=== PATIENT | female | born 1990 | race African-American/Black ===

== ENCOUNTER 2018-09-27 15:45 | Day surgery (SDC) | payer MEDICARE, MEDICAID ==
[2018-09-27 16:22] VITALS: BP 132/79; TEMP 98.5; BMI 51.6
--- NOTE | 2018-09-27 17:09 | PDOC.FPROB ---
FMR OB H&P: HPI - History of Present Illness Chief Complaint: chest pain History of Present Illness: 27AAF @ 30.5w dated by 2T US presented to clinic earlier in the day for routine Ob f/u. She was found to have near severe range blood pressures coupled with chest pain. The CP is new onset. It is substernal and non radiating. Described as an intense ache. Occurs while at rest and not associated with exertion. No history of CP before being and no history of GERD. Patient was evaluated by MFM earlier in the day and, per patient, her systolic blood pressure was >180 mmHg. She denies any headache, vision changes, AMS. She does not have hx of pregestational HTN. She denies dysuria, hematuria, RUQ pain , or increased BLE swelling. She reports her legs have been mildly swollen for some time now. Primary Care Physician: Emily Kennedy MD FMR OB H&P: Current - Care : 1 Para: 0 Gestational age: 30.5 Due date: 12/01/2018 Dating Criteria: 2T US Course/Complications: new onset chest pain leg swelling - OB Labs Blood type: unknown RH: unknown Antibody Screen: unknown HIV: unknown RPR: unknown HepBsAg: unknown Quad screen: unknown Urine drug screen: not done Gonorrhea: unknown Chlamydia: unknown GBS: unknown FMR OB H&P: History - Past Medical History PMH: none - OB History OB History: MFM diagnosed a short cervix and prescribed vaginal progesterone - Surgical History Sx History: none - Family History Family History: mother with a history of c/s for an unknown reason FMR OB H&P: Medications - Current Home Medications: Medication Instructions Recorded Confirmed Type Pnv No.95/Ferrous Fum/Folic AC 1 tab PO DAILY 09/27/18 09/27/18 History [ Vitamins Tablet] Progesterone, Micronized 1 capsule VAG HS 09/27/18 09/27/18 History [Progesterone] Allergies/Adverse Reactions: Allergies Allergy/AdvReac Type Severity Reaction Status Date / Time No Known Allergies Allergy Verified 09/27/18 16:11 FMR OB H&P: ROS - Review of Systems General: denies: fever/chills, weight/appetite/sleep changes ENT: denies: nasal congestion, rhinorrhea Cardiovascular: reports: chest pain, edema. denies: palpitation Respiratory: denies: cough, congestion Gastrointestinal: denies: abdominal pain, indigestion, bloating Genitourinary (Female): denies: dysuria, hematuria Musculoskeletal: denies: pain, stiffness Neurologic: denies: numbness, syncope Integumentary: denies: rash, lesions Endocrine: denies: cold intolerance, heat intolerance Psychological: denies: depression, anxiety FMR OB H&P: Vital Signs - Maternal Vital signs: Vital Signs - First Documented Temp Pulse Resp BP 98.5 F 85 18 132/79 09/27/18 16:09 09/27/18 16:09 09/27/18 16:09 09/27/18 16:09 FMR OB H&P: Physical Exam - Physical Exam General: NAD, awake, alert and oriented HEENT: normocephalic and atraumatic, PERRLA Neck: supple, trachea midline Chest: non-tender to palpation, no lesions Heart: RRR, normal S1/S2 General: CTAB, no respiratory distress Abdomen: soft, gravid, non-tender Neurological: cranial nerves II through XII intact, no focal deficit Skin: no rash, good tugor FMR OB H&P: A/P - Problem List (1) Atypical chest pain Current Visit: Yes Status: Acute Code(s): R07.89 - OTHER CHEST PAIN Assessment and Plan: -EKG pending -trend cardiac enzymes -currently not symptomatic -reportedly this was an issue prior to as well (2) Pre-eclampsia Current Visit: Yes Status: Suspected Code(s): O14.90 - UNSPECIFIED PRE- ECLAMPSIA, UNSPECIFIED TRIMESTER Qualifiers: Trimester: third trimester Qualified Code(s): O14.93 - Unspecified pre- eclampsia, third trimester Assessment and Plan: -CBC, CMP, Urine culture, urine protein:creatinine, HIV, RPR -initial blood pressure in normal range and patient asymptomatic -await lab/urine results and f/u accordingly Discussion: Date/Time: 09/27/18 8332 This H&P was discussed with [] and [] who agree with the above documentation and plan.
[2018-09-27 18:05] LABS: Creatinine, Urine 103.93 mg/dL (47-110)
[2018-09-27 18:12] LABS: #Eosinphils 0.1 thou/uL (0.0-0.7); #Lymphocytes 1.4 thou/uL (1.20-3.40); #Monocytes 0.6 thou/uL (0.11-0.59); #Neutrophils 4.1 thou/uL (1.40-6.50); %Basophils 0.4 % (0.0-1.0); %Monocytes 9.3 % (0.0-10.0); %Neutrophils 65.4 % (42.0-75.0); Hemoglobin 10.9 g/dL (12.0-16.0); Mean Corpuscular HGB CONC 32.8 g/dL (32.0-36.0); Mean Corpuscular Hemoglobin 27.9 pg (27.0-31.0); Mean Corpuscular Volume 84.9 fL (78.0-98.0); Mean Platelet Volume 8.4 fL (7.4-10.4); Platelet Count 146 thou/uL (130-400); RBC Distribution Width 11.3 % (11.5-14.5); White Blood Cell (WBC) Count 6.2 thou/uL (4.8-10.8)
[2018-09-27 18:26] LABS: ALT (SGPT) 12 U/L (8-55); AST (SGOT) 16 U/L (5-34); Albumin 3.4 g/dL (3.5-5.0); Alkaline Phosphatase 68 U/L (40-150); Anion Gap 10 mmol/L (10-20); BUN (Urea Nitrogen) 4 mg/dL (7.0-18.7); Bilirubin, Total 0.4 mg/dL (0.2-1.2); Calc. Creatinine Clearance 341 mL/min (70-130); Calcium 9.4 mg/dL (7.8-10.44); Carbon Dioxide 26 mmol/L (22-29); Chloride 103 mmol/L (98-107); Estimated GFR-MDRD Greater than 90; Globulin 3.3 g/dL (2.4-3.5); Glucose 81 mg/dL (70-105); Protein, Total 6.7 g/dL (6.0-8.3); Sodium 136 mmol/L (136-145)
[2018-09-27 18:30] LABS: Troponin I Less than 0.010 ng/mL (< 0.028)
[2018-09-27 18:52] LABS: HIV (1/2) Antibody/Antigen Non-Reactive (NonReactive); HIV 1/2 INDEX 0.11 S/CO (<1.00)
[2018-09-27 18:56] LABS: Syphilis Antibody Index 17.44 S/CO (<1.00 Non-Reactive)
[2018-09-27 20:39] LABS: Troponin I Less than 0.010 ng/mL (< 0.028)
--- NOTE | 2018-09-27 20:59 | PDOC.EVN ---
Event Note - Event Note Event Note: Labs significant for K: 3.0. Troponins negative x2, EKG NSR, P:C 0.135, all other pre-E labs negative. BP has been out of severe range since she has been here. Had a reading of 141/68 around 18:30. She does have one level of SBP in the low 140s about every hour, but otherwise they are commonly in the 100s/60s. She has been free of symptoms of CP here in hospital, no contractions, COLON, scotoma, LOF. Will d/c home with KCl 20mg daily and recheck potassium early next week.
[2018-09-28 00:47] LABS: Syphilis Antibody INDETERMINATE (Nonreactive)
== END 2018-09-27 21:00 | disposition home or self-care (01) ==
LOC: L&D/OP 15:45
PROVIDERS: ATTEND Family Medicine
DX: O99.89 Other specified diseases and conditions complicating pregnancy, childbirth and the puerperium (principal); R07.89 Other chest pain; Z3A.30 30 weeks gestation of pregnancy; Z79.899 Other long term (current) drug therapy
CPT/HCPCS: 36415; 80053; 82553; 82570; 84156; 84484; 85025; 86593; 86780; 87086; 87389; 93005; 93010; 99285

== ENCOUNTER 2018-10-29 13:36 | Observation (INO) | payer MEDICARE, MEDICAID ==
--- NOTE | 2018-10-29 13:51 | PDOC.FPROB ---
FMR OB H&P: HPI - History of Present Illness Chief Complaint: gHTN severe range pressures History of Present Illness: 27yo @35.2wks by LMP c/w 2T US presented to clinic earlier in the day for routine Ob f/u. She was found to have near severe range blood pressures, 159/117 , 166/106, 168/100. She was asymptomatic in clinic and continues to deny headache, vision changes, AMS, RUQ abdominal pain, dysuria or edema. She reports her legs have been mildly swollen for some time now. On 09/27/18 presented to [facility] from clinic for elevated pressures and chest pain. She had workup for pre-E which was ultimately negative. No hx of pregestational HTN. Primary Care Physician: Damion FMR OB H&P: Current - Care : 1 Para: 0 Gestational age: 35.2 Due date: 12/01/2018 Dating Criteria: LMP c/w 2T US Course/Complications: gHTN, obesity, polyhydramnios 10/22, normal MOLLY 10/29, IUGR - OB Labs Blood type: A RH: positive Antibody Screen: negative HIV: negative RPR: positive HepBsAg: negative Rubella: immune Gonorrhea: negative Chlamydia: negative 1 hour gtt: 94 A1c: 4.6% GBS: unknown H&H: 10.9/33.1 FMR OB H&P: History - Past Medical History PMH: + RPR, Obesity - Surgical History Sx History: None - Family History Family History: Brother- seizures Mother- DM, HTN, from [place] FMR OB H&P: Medications - Current Home Medications: Medication Instructions Recorded Confirmed Type Pnv No.95/Ferrous Fum/Folic AC 1 tab PO DAILY 09/27/18 09/27/18 History [ Vitamins Tablet] Potassium Chloride [K-Dur] 20 meq PO DAILY #30 tab 09/27/18 Rx Progesterone, Micronized 1 capsule VAG HS 09/27/18 09/27/18 History [Progesterone] Allergies/Adverse Reactions: Allergies Allergy/AdvReac Type Severity Reaction Status Date / Time No Known Allergies Allergy Verified 10/29/18 14:54 FMR OB H&P: ROS - Review of Systems General: denies: fever/chills, fatigue Eyes: denies: eye pain, vision changes, double vision, scotomas, floaters ENT: denies: nasal congestion, sinus pain/pressure Cardiovascular: reports: chest pain. denies: palpitation, edema Respiratory: denies: shortness of breath, exercise intolerance Gastrointestinal: denies: abdominal pain, nausea, vomiting Genitourinary (Female): denies: dysuria, vaginal discharge, vaginal pain, vaginal bleeding, contractions Musculoskeletal: denies: pain, swelling Neurologic: denies: numbness, seizures, headache Integumentary: denies: rash, lesions Psychological: reports: anxiety FMR OB H&P: Vital Signs - Heart Tones Baseline: 135 Variability: moderate Acceleration: present Deceleration: absent Category: category 1 FMR OB H&P: Physical Exam - Physical Exam General: NAD, awake, alert and oriented HEENT: normocephalic and atraumatic, MMM, conjunctiva clear, no scleral icterus Neck: supple Chest: non-tender to palpation Heart: RRR, no murmurs/rubs/gallops General: CTAB, no respiratory distress Abdomen: soft, gravid, non-tender, bowel sound present Deviation from normal: obese Musculoskeletal: normal gait and station, pulses present, FROM in all four extremities, no misalignment/asymmetry, no atrophy Neurological: no focal deficit Skin: capillary refill <2 seconds Psychiatric: intact recent and remote memory, good judgement and insight, normal mood and affect FMR OB H&P: A/P - Problem List (1) Gestational HTN Current Visit: Yes Status: Acute Code(s): O13.9 - GESTATIONAL HTN W/O SIGNIFICANT PROTEINURIA, UNSP TRIMESTER Qualifiers: Trimester: third trimester Qualified Code(s): O13.3 - Gestational [ -induced] hypertension without significant proteinuria, third trimester Disposition: gHTN with likely Pre-E - no hx of pregestational HTN - 150-160's/100-110's in clinic - 170's/90's here - Denies symptoms of Pre-E - Ordered NST/BPP with S/D ratio, CBC, CMP, and urine protein/creatinine ratio - Ordered 24hr Urine protein, had been ordered outpatient and not done - Consider steroids - Admit to observation sIUP - NST - Monitor VS Morbid Obesity +RPR/+Trep Ab - Titer 1:1 on 12/30, 1:2 on 09/27 Discussion: Date/Time: 10/29/18 7047 This H&P was discussed with Dr. Meadows who agrees with the above documentation and plan.
[2018-10-29 15:40] VITALS: BMI 54.7
[2018-10-29] MEDS: Betamet Acet/Betamet Na Ph 30 MG/5 ML VIAL IM SCH (16:55)
--- NOTE | 2018-10-29 17:11 | ULT ---
ULTRASOUND BIOPHYSICAL PROFILE ULTRASOUND DOPPLER UMBILICAL ARTERY 10/29/18 HISTORY: Gestational hypertension. COMPARISON: None. TECHNIQUE: Real time hill scale, color doppler and spectral analysis of the gravid uterus was performed. The biophysical profile score is 8/8. The placenta is anterior and the fetus is in vertex position. H eart rate documented at 140 beats per minute. Adequate amniotic fluid with amniotic fluid index of 14 .5 cm. At the placenta, the umbilical artery peak systolic velocity is 71.4 cm/s. End diastolic velocity 3 2.6 cm/s, systolic/diastolic ratio 2.19. Mid umbilical artery: Peak systolic velocity 105 cm/s. End diastolic velocity 38 cm/s. Systolic/diast olic ratio 2.8. The cord insertion peak systolic velocity umbilical artery is 98.5 cm/s. End diastolic velocity 26.9 cm/s. Systolic/diastolic ratio 3.66. IMPRESSION: 1. Normal umbilical artery doppler. 2. Biophysical profile score 8/8. POS: [facility]
[2018-10-29] MEDS ORDERED: Promethazine HCl 25 MG/ML VIAL IM PRN (17:22)
[2018-10-29] MEDS ORDERED: Ondansetron PF 4 MG/2 ML Vial IVP PRN (17:22)
[2018-10-29 17:42] LABS: #Eosinphils 0.1 thou/uL (0.0-0.7); #Lymphocytes 1.5 thou/uL (1.20-3.40); #Monocytes 0.4 thou/uL (0.11-0.59); #Neutrophils 4.8 thou/uL (1.40-6.50); %Basophils 0.1 % (0.0-1.0); %Eosinophils 1.8 % (0.0-10.0); %Lymphocytes 21.6 % (21.0-51.0); %Monocytes 6.4 % (0.0-10.0); %Neutrophils 70.2 % (42.0-75.0); Mean Corpuscular HGB CONC 34.1 g/dL (32.0-36.0); Mean Corpuscular Hemoglobin 28.5 pg (27.0-31.0); Mean Corpuscular Volume 83.6 fL (78.0-98.0); Mean Platelet Volume 8.8 fL (7.4-10.4); Platelet Count 142 thou/uL (130-400); RBC Distribution Width 11.4 % (11.5-14.5); Red Blood Cell (RBC) Count 3.86 mill/uL (4.20-5.40); White Blood Cell (WBC) Count 6.8 thou/uL (4.8-10.8)
[2018-10-29 17:44] LABS: Amphetamine Not Detected (NotDetected); Barbiturates Screen Not Detected (NotDetected); Benzodiazepine Screen Not Detected (NotDetected); Cocaine Metabolite Screen Not Detected (NotDetected); Medtox Control Line Valid? VALID (VALID); Medtox Reader # READER 1; Methadone Not Detected (NotDetected); Methamphetamine Not Detected (NotDetected); Opiate Screen Not Detected (NotDetected); Oxycodone Screen Not Detected (NotDetected); Phencyclidine (PCP) Not Detected (NotDetected); THC/Cannabinoid Screen Not Detected (NotDetected); Tricyclic Screen Not Detected (NotDetected)
[2018-10-29 18:02] LABS: Creatinine, Urine 144.54 mg/dL (47-110)
[2018-10-29 18:06] LABS: ALT (SGPT) 17 U/L (8-55); AST (SGOT) 18 U/L (5-34); Albumin 3.4 g/dL (3.5-5.0); Alkaline Phosphatase 91 U/L (40-150); Anion Gap 9 mmol/L (10-20); BUN (Urea Nitrogen) 5 mg/dL (7.0-18.7); Bilirubin, Total 0.3 mg/dL (0.2-1.2); Calc. Creatinine Clearance 354 mL/min (70-130); Carbon Dioxide 26 mmol/L (22-29); Chloride 105 mmol/L (98-107); Estimated GFR-MDRD Greater than 90; Globulin 2.9 g/dL (2.4-3.5); Glucose 92 mg/dL (70-105); Protein, Total 6.3 g/dL (6.0-8.3); Sodium 137 mmol/L (136-145)
[2018-10-29 18:09] LABS: Potassium 2.9 mmol/L (3.5-5.1)
[2018-10-29] MEDS ORDERED: Potassium Chloride 20 MEQ TAB PO SCH (18:30)
[2018-10-30] MEDS ORDERED: Potassium Chloride 20 MEQ TAB PO SCH ×3 (08:00→16:00)
--- NOTE | 2018-10-30 08:24 | PDOC.FM ---
- Subjective Subjective: Reports feeling well. Denies COLON, SOB, RUQ pain, vision changes, edema. No overnight events. No question or concerns. - Objective MAR Reviewed: Yes Vital Signs & Weight: Vital Signs (12 hours) Temp Pulse Resp BP 10/30/18 04:11 98.4 F 100 18 143/83 H 10/30/18 00:24 98.4 F 101 H 18 117/65 Weight Weight 144.696 kg I&O: 10/29/18 10/30/18 10/31/18 06:59 06:59 06:59 Intake Total 480 Output Total 50 Balance 430 Result Diagrams: 10/29/18 17:27 10/30/18 08:08 Phys Exam - Physical Examination Constitutional: NAD HEENT: moist MMs Neck: supple Respiratory: no wheezing, clear to auscultation bilateral Cardiovascular: RRR, no significant murmur Gastrointestinal: soft, non-tender, positive bowel sounds Musculoskeletal: no edema Neurological: moves all 4 limbs Psychiatric: normal affect, A&O x 3 Skin: cap refill <2 seconds Dx/Plan (1) Gestational HTN Code(s): O13.9 - GESTATIONAL HTN W/O SIGNIFICANT PROTEINURIA, UNSP TRIMESTER Status: Acute Qualifiers: Trimester: third trimester Qualified Code(s): O13.3 - Gestational [ -induced] hypertension without significant proteinuria, third trimester - Plan Plan: gHTN with likely Pre-E - no hx of pregestational HTN - 150-160's/100-110's in clinic - 170's/90's initially, pressures wnr overnight. - Denies symptoms of Pre-E - NST reactive - Urine Pr/Cr 0.16 - 8/8 BPP with S/D ratio 3.66 - Continue 24hr Urine protein, will await result - S/p Betamethasone x1, repeat today Hypokalemia - Replaced with 40mEq x2, 40meq at noon and prior to discharge - Will recheck at 1600 today sIUP - NST reactive - 8/8 BPP with S/D ratio 3.66 - Monitor VS Morbid Obesity +RPR/+Trep Ab - Titer 1:1 on 12/30, 1:2 on 09/27
[2018-10-30 08:41] LABS: Anion Gap 14 mmol/L (10-20); BUN (Urea Nitrogen) 4 mg/dL (7.0-18.7); Calc. Creatinine Clearance 348 mL/min (70-130); Calcium 9.2 mg/dL (7.8-10.44); Carbon Dioxide 21 mmol/L (22-29); Chloride 105 mmol/L (98-107); Estimated GFR-MDRD Greater than 90; Glucose 95 mg/dL (70-105); Sodium 137 mmol/L (136-145)
[2018-10-30] MEDS ORDERED: Budesonide 0.25 MG/2 ML NEB ONE (11:46)
[2018-10-30 16:08] LABS: Anion Gap 13 mmol/L (10-20); BUN (Urea Nitrogen) 4 mg/dL (7.0-18.7); Calc. Creatinine Clearance 342 mL/min (70-130); Calcium 9.5 mg/dL (7.8-10.44); Carbon Dioxide 21 mmol/L (22-29); Chloride 106 mmol/L (98-107); Estimated GFR-MDRD Greater than 90; Glucose 120 mg/dL (70-105); Potassium 3.1 mmol/L (3.5-5.1); Sodium 137 mmol/L (136-145)
[2018-10-30 16:18] VITALS: BP 129/72; TEMP 98.1
[2018-10-30] MEDS: Betamet Acet/Betamet Na Ph 30 MG/5 ML VIAL IM SCH (17:29)
[2018-10-30 17:41] LABS: Collection Duration 24 hrs; Urine Total Volume 1575 mL (600-1600)
[2018-10-30 18:14] LABS: Protein - 24 Hr 252 mg/24 hr (Less than 300); Protein, Urine 16 mg/dL (1-14)
--- NOTE | 2018-10-31 04:12 | DIS ---
DATE OF ADMISSION: 10/29/2018 DATE OF DISCHARGE: 10/30/2018 RESIDENT: Karen Beavers, PGY-1. ADMITTING ATTENDING: Stuart Meadows MD DISCHARGE ATTENDING: Stuart Meadows MD CONSULTS: None. PROCEDURES: None. PRIMARY DIAGNOSIS: Gestational hypertension with suspected preeclampsia. SECONDARY DIAGNOSES: 1. Single intrauterine . 2. Morbid obesity. 3. Positive RPR/positive treponemal antibody. DISCHARGE MEDICATIONS: vitamins. HISTORY OF PRESENT ILLNESS AND HOSPITAL COURSE: Ms. Ogden is a 28-year-old G1, P0 at 35.2 weeks by last menstrual period consistent with her second trimester ultrasound, who presented to clinic earlier in the day for routine OB followup. She was found to have severe range blood pressures of 159/117, 166/106, and 168/100. She was asymptomatic in clinic, but was instructed to come to the hospital for preeclampsia workup. At admission, her blood pressures were 170s/90s, but she denied any symptoms of headache, vision changes, altered mental status, right upper quadrant pain, or edema. She has had prior workup on 09/27/2018 for elevated pressures and chest pain. All labs at that time were negative and a urine protein creatinine was below 0.3. A 24-hour urine protein had been ordered outpatient, but she not had this done. This was obtained during hospitalization and results were 252mg. She was also given 2 doses of dexamethasone 24 hours apart during hospitalization for lung maturity of the fetus. Elevated blood pressure at admission may have possibly been attributed to an incorrect fitting cuff. Cuff was changed out for a large size for the upper arm and pressures were within normal range overnight and morning of discharge. She was noted to have hypokalemia of 2.9 at admission. She received 3 doses of PO 40 mEq potassium chloride to discharge. Recheck was 3.1. She has an appt early next week for repeat BMP to monitor potassium. DISPOSITION: Stable. DISCHARGE INSTRUCTIONS: 1. Location: Home. 2. Diet: No restrictions. 3. Activity: No restrictions. 4. Followup: Follow up with Dr. Levy in clinic for routine care. Appt early next week for repeat BMP to monitor potassium. Job ID: [id number] [facility]
== END 2018-10-30 18:40 | disposition home health service (06) ==
LOC: L&D/OP 13:36 → INTOOBSV 17:48 → 3SE 17:48
PROVIDERS: ADMIT Family Medicine; ATTEND Family Medicine
DX: O13.3 Gestational [pregnancy-induced] hypertension without significant proteinuria, third trimester (principal); O99.213 Obesity complicating pregnancy, third trimester; E66.01 Morbid (severe) obesity due to excess calories; O99.283 Endocrine, nutritional and metabolic diseases complicating pregnancy, third trimester; E87.6 Hypokalemia; Z79.899 Other long term (current) drug therapy; Z3A.35 35 weeks gestation of pregnancy
CPT/HCPCS: 76700; 76819; 80048 ×2; 80306; 81050; 82570; 83735; 84156; 96372 ×2; G0378; G0379; 36415; 59025; 80053; 84443; 85025; 99285; J0702; J7626

== ENCOUNTER 2018-11-17 12:00 | Inpatient (IN) | payer MEDICARE, MEDICAID ==
--- NOTE | 2018-11-17 13:37 | PDOC.FPROB ---
FMR OB H&P: HPI - History of Present Illness Chief Complaint: Chest Pain History of Present Illness: 27yo @38.0wks by LMP c/w 2T US presented for dull aching chest pain that started Sunday. Happens 15min after taking her labetalol and lasts for 30min. Worse with laying flat, does not radiate, not worse with exertion. She has had similar chest pain in the past with negative cardiac workup. EKG showed no ST segment changes preformed in ED. She denies LOF, VB, changes in discharge, contractions. Reports pelvic pressure. Denies SOB, diaphoresis, edema or vision changes. FMR OB H&P: Current - Care : 1 Para: 0 Due date: 12/01/18 Dating Criteria: LMP c/w 2T US Course/Complications: gHTN, obesity, polyhydramnios 10/22, IUGR - OB Labs Blood type: A RH: positive Antibody Screen: negative HIV: negative RPR: positive HepBsAg: negative Rubella: immune Urine drug screen: not done Gonorrhea: negative Chlamydia: negative 1 hour gtt: 94 A1c: 4.6 H&H: 10.9/33.1 FMR OB H&P: History - Past Medical History PMH: + RPR, Obesity - Surgical History Sx History: None - Family History Family History: Brother- seizures Mother- DM, HTN, from [place] FMR OB H&P: Medications - Current Home Medications: Medication Instructions Recorded Confirmed Type Pnv No.95/Ferrous Fum/Folic AC 1 tab PO DAILY 09/27/18 11/17/18 History [ Vitamins Tablet] Potassium Chloride [K-Dur] 20 meq PO DAILY #30 tab 09/27/18 11/17/18 Rx Labetalol [Normodyne] 100 mg PO BID 11/17/18 11/17/18 History Allergies/Adverse Reactions: Allergies Allergy/AdvReac Type Severity Reaction Status Date / Time No Known Allergies Allergy Verified 10/29/18 14:54 FMR OB H&P: ROS - Review of Systems General: denies: fever/chills, weight/appetite/sleep changes Eyes: denies: vision changes, double vision, scotomas, floaters ENT: denies: nasal congestion, rhinorrhea, sore throat Cardiovascular: reports: chest pain. denies: edema Respiratory: denies: cough, shortness of breath Gastrointestinal: denies: abdominal pain, nausea, vomiting, diarrhea, constipation Genitourinary (Female): reports: vaginal pain (described as pressure and pain), vaginal pressure. denies: dysuria, vaginal discharge, vaginal bleeding, contractions Musculoskeletal: denies: pain, stiffness, swelling Neurologic: denies: syncope, seizures, weakness Integumentary: denies: itching, rash FMR OB H&P: Vital Signs - Heart Tones Baseline: 135 Variability: moderate Acceleration: present Deceleration: absent Category: category 1 FMR OB H&P: Physical Exam - Physical Exam General: NAD, awake, alert and oriented HEENT: normocephalic and atraumatic, MMM, conjunctiva clear, oropharynx clear Neck: supple, trachea midline Heart: RRR, no murmurs/rubs/gallops General: CTAB, no respiratory distress, good air movement, no wheezing Abdomen: soft, non-tender, bowel sound present Musculoskeletal: normal gait and station, pulses present Neurological: no focal deficit Skin: no rash, capillary refill <2 seconds Lymphatic: no unusual bruising or bleeding Psychiatric: intact recent and remote memory, good judgement and insight, normal mood and affect - Pelvic Exam Membranes: intact Presentation: vertex Estimated Weight: 7 lbs FMR OB H&P: A/P - Problem List (1) Atypical chest pain Current Visit: No Status: Acute Code(s): R07.89 - OTHER CHEST PAIN (2) Gestational HTN Current Visit: No Status: Acute Code(s): O13.9 - GESTATIONAL HTN W/O SIGNIFICANT PROTEINURIA, UNSP TRIMESTER Qualifiers: Trimester: third trimester Qualified Code(s): O13.3 - Gestational [ -induced] hypertension without significant proteinuria, third trimester (3) Pre-eclampsia Current Visit: No Status: Suspected Code(s): O14.90 - UNSPECIFIED PRE- ECLAMPSIA, UNSPECIFIED TRIMESTER Qualifiers: Trimester: third trimester Qualified Code(s): O14.93 - Unspecified pre- eclampsia, third trimester Disposition: gHTN - no hx of pregestational HTN - Denies symptoms of Pre-E - Urine Pr/Cr 0.16 on 10/30 - Neg 24hr protein on 10/30 - S/p Betamethasone x2 on 10/30 - Will obtain CBC, CMP, Urine protein/Cr - Will obtain UDS for 5-6 min contractions - SVE fingertip, will recheck in 4 hours sIUP - 06/19 BPP with S/D ratio 3.66 on 10/29 - Monitor VS Morbid Obesity +RPR/+Trep Ab - Titer 1:1 on 12/30, 1:2 on 09/27 Discussion: Date/Time: 11/17/18 9529 This H&P was discussed with Dr. Millan and Dr. Wiley who agree with the above documentation and plan. Addendum - Attending - Attending Attestation Date/Time: 11/17/18 1901 I personally evaluated the patient and discussed the management with Dr. Beavers and Monty I agree with the History, Examination, Assessment and Plan documented above with any addition or exceptions noted below. 28 yo female at 38.0 wks by LMP/25.5 wk admitted for IOL 2/ gHTN RENZO: 12/01/2018 Patient originally presented for evaluation of previous CP. Atypical. Noncardiac. Workup in ER negative. Otherwise patient asymptomatic. has been complicated by multiple factors including: gHTN with severe range pressures requiring medication, morbid obesity with BMI 55 and 36 lb wt gain this , SGA fetus with poor interval growth, gThrombocytopenia, advanced paternal age, Cannibus use in 1T, incomplete/late care with poor dating , anemia of , short cervix/cervical incompetency requiring vaginal progesterone, hx of syphilis treated in 2016, and fetus with echogenic intracardiac focus VS reviewed. BP normotensive. Fetus cephalic. EFW 6lbs SVE FT/75/-3. Intact. NAD. RRR. no murmurs CTA bilaterally Fundus nontender 1. sIUP: IOB labs reviewed. Anatomy reviewed. 1 hour gtt 94. UDS negative. NILM/ HPV negative. 3T negative. GBS positive. Flu/Tdap given. 2. Incomplete/late care: Poor dating. Has been routinely followed by MFM. Dates consistent based on sono. 3. 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 Has been clean since positive UPT. UDS has been negative. UDS negative at admission. No need to screen . 4. BMI 55 with excessive maternal weight gain (36 lbs): Lifestyle changes. Encourage breast feeding. Risk for complications related to delivery and period. TSH = 2.55. A1c = 4.6%. 5. Short cervix/cervical incompetency: Treated with vaginal progesterone up to 37 wks. No known history of risk factors. 6. hx of STI: Negative workup this 7. hx of syphilis: Treated 2015. RPR titer stable at 1:2 8. advanced paternal age 9. Fetus with evidence of echogenic cardiac focus: No echo performed. Recommend echo. 10. anemia of : monitor H&H 11. gThrombocytopenia: Platelets greater than 100k. Monitor closely. On spectrum for HELLP. 12. gHTN: Severe range BP on occasion in outpatient setting. No home BP monitoring. Was started on oral BP meds over last 2 wks. Feels this is reason for CP. Notes pain after ingestion of medication. On monitoring today normotensive. Will hold BP meds and give prns as needed. Repeat labs pending. Add uric acid to trend. 13. SGA fetus with poor interval growth: AC less than 3% on 3T scan but slowly improved with last scan. NST reactive today. BPP 8/8 on Sunday. EFW = 30% (25.5 wks) --> 32% (28.5 wks) --> 25% (30.5 wks) --> 23% (33.5 wks) --> 14% (37.5 wks) 14. ASH, undiagnosed: monitor closely 15. DVT ppx: Will need lovenox after delivery. Continue SCDs. Dispo: OB labs pending. Start IOL 2/2 gHTN, poor growth, gthrombocytopenia -- Cooks balloon with pit. Yumi
[2018-11-17 14:08] VITALS: BMI 54.9
[2018-11-17] MEDS ORDERED: Promethazine HCl 25 MG/ML VIAL IM PRN (15:16)
[2018-11-17] MEDS ORDERED: Docusate 100 MG CAP PO PRN (15:16)
[2018-11-17] MEDS ORDERED: Ondansetron PF 4 MG/2 ML Vial IVP PRN (15:16)
[2018-11-17 15:37] LABS: #Eosinphils 0.1 thou/uL (0.0-0.7); #Lymphocytes 1.3 thou/uL (1.20-3.40); #Monocytes 0.5 thou/uL (0.11-0.59); #Neutrophils 4.4 thou/uL (1.40-6.50); %Basophils 0.4 % (0.0-1.0); %Eosinophils 1.5 % (0.0-10.0); %Lymphocytes 20.1 % (21.0-51.0); %Monocytes 7.2 % (0.0-10.0); %Neutrophils 70.8 % (42.0-75.0); Hemoglobin 10.9 g/dL (12.0-16.0); Mean Corpuscular HGB CONC 34.3 g/dL (32.0-36.0); Mean Corpuscular Hemoglobin 28.4 pg (27.0-31.0); Mean Corpuscular Volume 82.8 fL (78.0-98.0); Mean Platelet Volume 8.5 fL (7.4-10.4); Platelet Count 145 thou/uL (130-400); Red Blood Cell (RBC) Count 3.85 mill/uL (4.20-5.40); White Blood Cell (WBC) Count 6.3 thou/uL (4.8-10.8)
[2018-11-17 15:57] LABS: ALT (SGPT) 19 U/L (8-55); AST (SGOT) 22 U/L (5-34); Albumin 3.3 g/dL (3.5-5.0); Alkaline Phosphatase 107 U/L (40-150); Anion Gap 14 mmol/L (10-20); BUN (Urea Nitrogen) 6 mg/dL (7.0-18.7); Bilirubin, Total 0.3 mg/dL (0.2-1.2); Calc. Creatinine Clearance 376 mL/min (70-130); Carbon Dioxide 19 mmol/L (22-29); Chloride 106 mmol/L (98-107); Estimated GFR-MDRD Greater than 90; Globulin 3.5 g/dL (2.4-3.5); Glucose 83 mg/dL (70-105); Potassium 3.3 mmol/L (3.5-5.1); Protein, Total 6.8 g/dL (6.0-8.3); Sodium 136 mmol/L (136-145)
[2018-11-17 16:14] LABS: HBSAg Index 0.19 S/CO (0-0.99); Hep B Surf Ag Non-Reactive S/CO (NonReactive); Syphilis Antibody Index 18.77 S/CO (<1.00 Non-Reactive)
[2018-11-17 16:58] LABS: Amphetamine Not Detected (NotDetected); Barbiturates Screen Not Detected (NotDetected); Benzodiazepine Screen Not Detected (NotDetected); Cocaine Metabolite Screen Not Detected (NotDetected); Medtox Control Line Valid? VALID (VALID); Medtox Reader # READER 1; Methadone Not Detected (NotDetected); Methamphetamine Not Detected (NotDetected); Opiate Screen Not Detected (NotDetected); Oxycodone Screen Not Detected (NotDetected); Phencyclidine (PCP) Not Detected (NotDetected); THC/Cannabinoid Screen Not Detected (NotDetected); Tricyclic Screen Not Detected (NotDetected)
[2018-11-17 17:06] LABS: Creatinine, Urine 117.99 mg/dL (47-110)
[2018-11-17 17:57] LABS: Syphilis Antibody INDETERMINATE (Nonreactive)
[2018-11-17] MEDS ORDERED: Carboprost 250 MCG/ML AMP IM PRN (18:11)
[2018-11-17] MEDS ORDERED: Misoprostol 200 MCG TAB PR PRN (18:11)
[2018-11-17] MEDS ORDERED: Lidocaine 1% (PF) 30 ML VIAL SC PRN (18:11)
[2018-11-17] MEDS ORDERED: NS / Oxytocin 40 units/1000ml 1,000 ML IV PRN (18:11)
[2018-11-17] MEDS ORDERED: Ibuprofen 800 MG TAB PO PRN (18:11)
[2018-11-17] MEDS ORDERED: Diphenoxylate HCl/Atropine Tablet PO PRN (18:11)
[2018-11-17] MEDS ORDERED: Penicillin G Potassium 5 MILL.UNITS in Sodium Chloride 0.9% 100 ML IVPB SCH (18:30)
--- NOTE | 2018-11-17 18:38 | PDOC.LDPN ---
Labor & Delivery Progress Note - Subjective Subjective: comfortable - Objective Vital signs reviewed and normal: yes General: NAD Uterine fundus: non tender Dilation: 2 Effacement: 90% Station: 0 FHT: category 1 - Assessment (1) Atypical chest pain Code(s): R07.89 - OTHER CHEST PAIN Current Visit: No Status: Acute (2) Gestational HTN Code(s): O13.9 - GESTATIONAL HTN W/O SIGNIFICANT PROTEINURIA, UNSP TRIMESTER Current Visit: No Status: Acute Qualifiers: Trimester: third trimester Qualified Code(s): O13.3 - Gestational [ -induced] hypertension without significant proteinuria, third trimester (3) Pre-eclampsia Code(s): O14.90 - UNSPECIFIED PRE-ECLAMPSIA, UNSPECIFIED TRIMESTER Current Visit: No Status: Suspected Qualifiers: Trimester: third trimester Qualified Code(s): O14.93 - Unspecified pre- eclampsia, third trimester Plan: continue plan of care, labor augmentation -: IOL for gHTN - no hx of pregestational HTN - Denies symptoms of Pre-E - Urine Pr/Cr 0.15 today - Neg 24hr protein on 10/30 - UDS neg - Balloon placed for IOL, SVE 2/90/0, avoiding cytotec due to 5-6min contractions currently - Continue serial cervical exams - Monitor BP sIUP - 06/19 BPP with S/D ratio 3.66 on 10/29 - Monitor VS Morbid Obesity +RPR/+Trep Ab - Titer 1:1 on 12/30, 1:2 on 09/27 Addendum - Attending - Attending Attestation Date/Time: 11/17/18 0962 I personally evaluated the patient and discussed the management with Dr. Beavers and Monty I agree with the History, Examination, Assessment and Plan documented above with any addition or exceptions noted below. 28 yo female at 38.0 wks by LMP/25.5 wk admitted for IOL 2/2 gHTN, poor growth, gthrombocytopenia RENZO: 12/01/2018 Cooks balloon placed for IOL due to concern for intolerance and risk for hyperstimulation with miso. [place] of 6. VS reviewed. BP normotensive. Fetus cephalic. EFW 6lbs SVE 2/80/-3. Balloon in place. Intact membranes. NAD. RRR. no murmurs CTA bilaterally Fundus nontender 1. sIUP: IOB labs reviewed. Anatomy reviewed. 1 hour gtt 94. UDS negative. NILM/ HPV negative. 3T negative. GBS positive. Flu/Tdap given. 2. Incomplete/late care: Poor dating. Has been routinely followed by MFM. Dates consistent based on sono. 3. 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 Has been clean since positive UPT. UDS has been negative. UDS negative at admission. No need to screen . 4. BMI 55 with excessive maternal weight gain (36 lbs): Lifestyle changes. Encourage breast feeding. Risk for complications related to delivery and period. TSH = 2.55. A1c = 4.6%. Large risk of prolonged induction of labor. 5. Short cervix/cervical incompetency: Treated with vaginal progesterone up to 37 wks. No known history of risk factors. 6. hx of STI: Negative workup this 7. hx of syphilis: Treated 2015. RPR titer stable at 1:2 and 1:1. 8. advanced paternal age 9. Fetus with evidence of echogenic cardiac focus: No echo performed. Recommend echo. 10. anemia of : monitor H&H 11. gThrombocytopenia: Platelets greater than 100k. Monitor closely. On spectrum for HELLP. 12. gHTN: Severe range BP on occasion in outpatient setting. No home BP monitoring. On monitoring today normotensive. Will hold BP meds and give prns as needed. Repeat labs WNL. No evidence at this time for progression to preeclampsia. Uric acid 4.4. 13. SGA fetus with poor interval growth: AC less than 3% on 3T scan but slowly improved with last scan. NST reactive today. BPP 8/8 on Sunday. EFW = 30% (25.5 wks) --> 32% (28.5 wks) --> 25% (30.5 wks) --> 23% (33.5 wks) --> 14% (37.5 wks) 14. ASH, undiagnosed: monitor closely 15. DVT ppx: Will need lovenox after delivery. Continue SCDs. 16. GBS carrier: Start PCN as indicated. Dispo: Continue current treatment plan. Add pit for augmentation later tonight. Yumi
[2018-11-17] MEDS ORDERED: Penicillin G 2.5 MILL.units 2.5 MILL.UNITS in Premix Bag 1 BAG IVPB SCH (23:00)
--- NOTE | 2018-11-17 23:16 | PDOC.LDPN ---
Labor & Delivery Progress Note - Subjective Subjective: comfortable, painful contractions (starting to feel CTX becoming stronger) - Objective Vital signs reviewed and normal: yes General: NAD, resting, breathing through contractions Uterine fundus: non tender FHT: category 1 [place] contractions every: q10min Plan: continue plan of care -: IOL for gHTN - no hx of pregestational HTN - Denies symptoms of Pre-E; endorses headache - will give tylenol - Urine Pr/Cr 0.15 today - Neg 24hr protein on 10/30 - UDS neg - Balloon placed for IOL, SVE /, avoiding cytotec due to 5-6min contractions currently - Continue serial cervical exams. Will re-check in 4hours - Monitor BP sIUP - 06/19 BPP with S/D ratio 3.66 on 10/29 - Monitor VS Morbid Obesity +RPR/+Trep Ab - Titer 1:1 on 12/30, 1:2 on 09/27 Continue current plan
[2018-11-18] MEDS: Lactated Ringer's 1,000 ML IV SCH ×4 (00:08→20:57)
[2018-11-18] MEDS ORDERED: Acetaminophen 500 MG TAB PO PRN (00:51)
[2018-11-18] MEDS ORDERED: Butorphanol Tartrate 1 MG/ML VIAL SLOW IVP PRN (00:51)
[2018-11-18] MEDS ORDERED: NS w/ Oxytocin 10 units 500 ML IV SCH (02:45)
[2018-11-18] MEDS ORDERED: Penicillin G Potassium 5 MILL.UNITS in Sodium Chloride 0.9% 100 ML IVPB SCH (03:00)
[2018-11-18] MEDS ORDERED: Fentanyl 4 mcg/Bup 0.1% Cadd 100 ML ONE (03:05)
--- NOTE | 2018-11-18 03:36 | PDOC.LDPN ---
Labor & Delivery Progress Note - Subjective Subjective: painful contractions, other (Headache resolved with APAP) - Objective Vital signs reviewed and normal: yes Abnormal vital signs: BP 140-150/90 since switching to wrist cuff. Was WNL prior to switch. General: NAD Uterine fundus: non tender SVE: cooks balloon in place. FHT: category 1 [place] contractions every: 5-10 minutes. Plan: labor augmentation -: IOL for gHTN - no hx of pregestational HTN - Denies symptoms of Pre-E; endorses headache - resolved with APAP. - Urine Pr/Cr 0.15 today - Neg 24hr protein on 10/30 - UDS neg - Balloon placed for IOL, SVE /0, Pit started at 0300 hours. - Continue serial cervical exams. Will re-check in 4hours - Monitor BP- elevated since switching cuff. false reading. sIUP - 06/19 BPP with S/D ratio 3.66 on 10/29 - Monitor VS Morbid Obesity +RPR/+Trep Ab - Titer 1:1 on 12/30, 1:2 on 09/27 Epidural now for pain.
[2018-11-18] MEDS ORDERED: Fentanyl 100 MCG/2 ML VIAL ONE ×2 (03:49→23:34)
[2018-11-18] MEDS ORDERED: Bupivacaine 0.5% 10 ML VIAL ONE (03:49)
[2018-11-18] MEDS ORDERED: diphenhydrAMINE 50 MG/ML VIAL IVP PRN (04:36)
[2018-11-18] MEDS ORDERED: Fentanyl 100 MCG/2 ML VIAL I-THECAL ONE (04:36)
[2018-11-18] MEDS ORDERED: Ondansetron PF 4 MG/2 ML Vial IVP PRN (04:36)
[2018-11-18] MEDS ORDERED: Lactated Ringer's 500 ML IV PRN (04:36)
[2018-11-18] MEDS ORDERED: ePHEDrine/0.9% NaCl/PF SYRINGE 50 mg/10 ml SLOW IVP PRN (04:36)
[2018-11-18] MEDS ORDERED: Naloxone HCl 0.4 mg/ml Vial IVP PRN ×2 (04:36)
[2018-11-18] MEDS ORDERED: Acetaminophen 325 MG TAB PO PRN (04:36)
[2018-11-18] MEDS ORDERED: Eucerin (Mineral Oil/Petrolatum,White) 30 gm Jar TOP PRN (04:36)
[2018-11-18] MEDS ORDERED: Promethazine HCl 25 MG/ML VIAL IM PRN (04:36)
[2018-11-18] MEDS ORDERED: Communication Order-Pharmacy FS SCH (04:45)
[2018-11-18] MEDS ORDERED: Fentanyl 4 mcg/Bupivacaine 0.1% Cassette 100 ML EPIDURAL SCH (04:45)
[2018-11-18] MEDS ORDERED: Bupivacaine 0.25% 10 ML VIAL EPIDURAL ONE (04:45)
--- NOTE | 2018-11-18 06:34 | PDOC.LDPN ---
Addendum entered and electronically signed by Alisha Gant MD 11/18/18 06:57 : cervical check at 0600: 5/80/-2 Original Note: Labor & Delivery Progress Note - Subjective Subjective: comfortable, no concerns - Objective Vital signs reviewed and normal: yes General: NAD, resting Uterine fundus: non tender FHT: category 2, late decelerations (recoverable, intermittent) [place] contractions every: q3-5min - Assessment (1) Late deceleration of heart rate Code(s): O36.8390 - MATERN CARE FOR ABNLT FETL HRT RATE OR RHYM, UNSP TRI, UNSP Current Visit: Yes Status: Acute (2) Gestational HTN Code(s): O13.9 - GESTATIONAL HTN W/O SIGNIFICANT PROTEINURIA, UNSP TRIMESTER Current Visit: No Status: Acute Qualifiers: Trimester: third trimester Qualified Code(s): O13.3 - Gestational [ -induced] hypertension without significant proteinuria, third trimester Plan: continue plan of care -: IOL for gHTN - no hx of pregestational HTN - Denies symptoms of Pre-E; endorses headache - resolved with APAP. - Urine Pr/Cr 0.15 today - Neg 24hr protein on 10/30 - UDS neg - Balloon placed for IOL, SVE 90/0, Pit started at 0300 hours. Balloon fell out around 0600. - Continue serial cervical exams. Will re-check in 4hours - Monitor BP- 125/80 on exam sIUP - 8/8 BPP with S/D ratio 3.66 on 10/29 - Monitor VS Late Decels - recoverable, intermittent; Cat 2 - Will continue to monitor heart tracing Morbid Obesity +RPR/+Trep Ab - Titer 1:1 on 12/30, 1:2 on 09/27 Continuous epidural for pain Addendum - Attending - Attending Attestation Date/Time: 11/18/18 1105 I personally evaluated the patient and discussed the management with Dr. Beavers and Monty I agree with the History, Examination, Assessment and Plan documented above with any addition or exceptions noted below. 28 yo female at 38.1 wks by LMP/25.5 wk admitted for IOL 2/2 gHTN, poor growth, gthrombocytopenia RENZO: 12/01/2018 Cooks balloon out at 0600. Continue pit. Otherwise patient doing well. Tolerating contractions but would like epidural. VS reviewed. BP normotensive. Fetus cephalic. EFW 6lbs Balloon out at 0600 at 11/18/18 Intact membranes On pit NAD. RRR. no murmurs CTA bilaterally Fundus nontender 1. sIUP: IOB labs reviewed. Anatomy reviewed. 1 hour gtt 94. UDS negative. NILM/ HPV negative. 3T negative. GBS positive. Flu/Tdap given. 2. Incomplete/late care: Poor dating. Has been routinely followed by MFM. Dates consistent based on sono. 3. 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 Has been clean since positive UPT. UDS has been negative. UDS negative at admission. No need to screen infant. 4. BMI 55 with excessive maternal weight gain (36 lbs): Lifestyle changes. Encourage breast feeding. Risk for complications related to delivery and period. TSH = 2.55. A1c = 4.6%. Large risk of prolonged induction of labor. 5. Short cervix/cervical incompetency: Treated with vaginal progesterone up to 37 wks. No known history of risk factors. 6. hx of STI: Negative workup this 7. hx of syphilis: Treated 2015. RPR titer stable at 1:2 and 1:1. 8. advanced paternal age 9. Fetus with evidence of echogenic cardiac focus: No echo performed. Recommend echo. 10. anemia of : monitor H&H 11. gThrombocytopenia: Platelets greater than 100k. Monitor closely. On spectrum for HELLP. 12. gHTN: Asymptomatic. Normotensive. Will hold BP meds and give prns as needed. Repeat labs WNL. No evidence at this time for progression to preeclampsia. Uric acid 4.4. 13. SGA fetus with poor interval growth: AC less than 3% on 3T scan but slowly improved with last scan. NST reactive today. BPP 8/8 on Sunday. EFW = 30% (25.5 wks) --> 32% (28.5 wks) --> 25% (30.5 wks) --> 23% (33.5 wks) --> 14% (37.5 wks) 14. ASH, undiagnosed: monitor closely 15. DVT ppx: Will need lovenox after delivery. Continue SCDs. 16. GBS carrier: Start PCN. Dispo: Continue current treatment plan. Repeat exam in 4 hours or as indicated. Yumi
[2018-11-18] MEDS: Penicillin G 2.5 MILL.units 2.5 MILL.UNITS in Premix Bag 1 BAG IVPB SCH ×4 (06:56→22:40)
--- NOTE | 2018-11-18 08:31 | PDOC.LDPN ---
Labor & Delivery Progress Note - Subjective Subjective: comfortable - Objective Vital signs reviewed and normal: yes Abnormal vital signs: Pt having some elevated pressures above 140. no severe range General: NAD, resting Uterine fundus: non tender SVE: 8:15 Dilation: 6 Effacement: 75% Station: -1 FHT: category 1 [place] contractions every: 2 AROM: clear fluid IUPC placed: yes FSE placed: yes - Assessment (1) Current Visit: Yes Status: Acute Qualifiers: Weeks of gestation: 38 weeks Qualified Code(s): Z3A.38 - 38 weeks gestation of (2) Late deceleration of heart rate Code(s): O36.8390 - MATERN CARE FOR ABNLT FETL HRT RATE OR RHYM, UNSP TRI, UNSP Current Visit: Yes Status: Acute (3) Gestational HTN Code(s): O13.9 - GESTATIONAL HTN W/O SIGNIFICANT PROTEINURIA, UNSP TRIMESTER Current Visit: No Status: Acute Qualifiers: Trimester: third trimester Qualified Code(s): O13.3 - Gestational [ -induced] hypertension without significant proteinuria, third trimester Plan: labor augmentation, pitocin for augmentation -: IOL for gHTN - no hx of pregestational HTN - Denies symptoms of Pre-E; Denies headache at this time - Urine Pr/Cr 0.15 today - Neg 24hr protein on 10/30 - UDS neg - Balloon placed for IOL, SVE 90/0, Pit started at 0300 hours. Balloon fell out around 0600. Cevical exam 0815 6/80/-1. AROM with clear fluid. IUPC and FSE placed due to difficulty maintaining accurate FHT measurements due to pt body habitus. -Some elevated BP. No severe range noted. sIUP - 8/8 BPP with S/D ratio 3.66 on 10/29 - Monitor VS Late Decels - recoverable, intermittent; Cat 2 - Placed FSE at 8:15 for more accurate FHT measurement. GBS+ -On penicllin ppx. Morbid Obesity +RPR/+Trep Ab - Titer 1:1 on 12/30, 1:2 on 09/27 -On penicillin ppx Addendum - Attending - Attending Attestation Date/Time: 11/18/18 1108 I personally evaluated the patient and discussed the management with Dr. Parker I agree with the History, Examination, Assessment and Plan documented above with any addition or exceptions noted below. 28 yo female at 38.1 wks by LMP/25.5 wk admitted for IOL 2/2 gHTN, poor growth, gthrombocytopenia RENZO: 12/01/2018 Trouble with and contraction monitoring. Internals placed. VS reviewed. BP normotensive. Fetus cephalic. EFW 6lbs Balloon out at 0600 at 11/18/18 AROM, clear at 0815. IUPC/FSE placed. On pit NAD. Fundus nontender 1. sIUP: IOB labs reviewed. Anatomy reviewed. 1 hour gtt 94. UDS negative. NILM/ HPV negative. 3T negative. GBS positive. Flu/Tdap given. 2. Incomplete/late care: Poor dating. Has been routinely followed by MFM. Dates consistent based on sono. 3. 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 Has been clean since positive UPT. UDS has been negative. UDS negative at admission. No need to screen . 4. BMI 55 with excessive maternal weight gain (36 lbs): Lifestyle changes. Encourage breast feeding. Risk for complications related to delivery and period. TSH = 2.55. A1c = 4.6%. Large risk of prolonged induction of labor. 5. Short cervix/cervical incompetency: Treated with vaginal progesterone up to 37 wks. No known history of risk factors. 6. hx of STI: Negative workup this 7. hx of syphilis: Treated 2015. RPR titer stable at 1:2 and 1:1. 8. advanced paternal age 9. Fetus with evidence of echogenic cardiac focus: No echo performed. Recommend echo. 10. anemia of : monitor H&H 11. gThrombocytopenia: Platelets greater than 100k. Monitor closely. On spectrum for HELLP. 12. gHTN: Asymptomatic. Normotensive. Will hold BP meds and give prns as needed. Repeat labs WNL. No evidence at this time for progression to preeclampsia. Uric acid 4.4. 13. SGA fetus with poor interval growth: AC less than 3% on 3T scan but slowly improved with last scan. NST reactive today. BPP 8/8 on Sunday. EFW = 30% (25.5 wks) --> 32% (28.5 wks) --> 25% (30.5 wks) --> 23% (33.5 wks) --> 14% (37.5 wks) 14. ASH, undiagnosed: monitor closely 15. DVT ppx: Will need lovenox after delivery. Continue SCDs. 16. GBS carrier: Continue PCN. Dispo: Continue current treatment plan. Repeat exam in 4 hours or as indicated. Yumi
--- NOTE | 2018-11-18 13:38 | PDOC.LDPN ---
Labor & Delivery Progress Note - Subjective Subjective: comfortable - Objective Vital signs reviewed and normal: yes General: NAD, resting Uterine fundus: non tender SVE: 1:15 Dilation: 6 Effacement: 90% Station: -1 FHT: category 1, variability present [place] contractions every: 2-3 AROM: clear fluid IUPC placed: yes FSE placed: yes - Assessment (1) Current Visit: Yes Status: Acute Qualifiers: Weeks of gestation: 38 weeks Qualified Code(s): Z3A.38 - 38 weeks gestation of (2) Late deceleration of heart rate Code(s): O36.8390 - MATERN CARE FOR ABNLT FETL HRT RATE OR RHYM, UNSP TRI, UNSP Current Visit: Yes Status: Acute (3) Gestational HTN Code(s): O13.9 - GESTATIONAL HTN W/O SIGNIFICANT PROTEINURIA, UNSP TRIMESTER Current Visit: No Status: Acute Qualifiers: Trimester: third trimester Qualified Code(s): O13.3 - Gestational [ -induced] hypertension without significant proteinuria, third trimester Plan: continue plan of care, resuscitative measures -: 27yo @38.0wks by LMP c/w 2T US here for IOL for gHTN IOL for gHTN - no hx of pregestational HTN - Denies symptoms of Pre-E; Denies headache at this time - Urine Pr/Cr 0.15 today - Neg 24hr protein on 10/30 - UDS neg - Balloon placed for IOL, SVE 2/90/0, Pit started at 0300 hours. Balloon fell out around 0600. Cevical exam 0815 6/80/-1. AROM with clear fluid at 0815. IUPC and FSE placed due to difficulty maintaining accurate FHT measurements due to pt body habitus at 0815. Pt checked 1315 6/90/-1. -Some elevated BP. Had a few severe but rechecks were normal. Pt was lying on cuff. Replaced cuff. Last BP 130/86. Continue to monitor. sIUP - 8/8 BPP with S/D ratio 3.66 on 10/29 - Monitor VS Late Decels - Last 20 minutes strip has been category 1 with good moderate variability GBS+ -On penicllin ppx. Morbid Obesity +RPR/+Trep Ab - Titer 1:1 on 12/30, 1:2 on 09/27 -On penicillin ppx Addendum - Attending - Attending Attestation Date/Time: 11/18/18 1412 I personally evaluated the patient and discussed the management with Dr. Parker I agree with the History, Examination, Assessment and Plan documented above with any addition or exceptions noted below. 28 yo female at 38.1 wks by LMP/25.5 wk admitted for IOL 2/2 gHTN, poor growth, gthrombocytopenia RENZO: 12/01/2018 Patient doing well. VS reviewed. BP normotensive. 3 outliers due to positioning. Fetus cephalic. EFW 6lbs Balloon out at 0600 at 11/18/18 AROM, clear at 0815. IUPC/FSE placed. On pit. Cat 1 tracing. Now /-2 NAD. Fundus nontender 1. sIUP: IOB labs reviewed. Anatomy reviewed. 1 hour gtt 94. UDS negative. NILM/ HPV negative. 3T negative. GBS positive. Flu/Tdap given. 2. Incomplete/late care: Poor dating. Has been routinely followed by M. Dates consistent based on sono. 3. 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 Has been clean since positive UPT. UDS has been negative. UDS negative at admission. No need to screen infant. 4. BMI 55 with excessive maternal weight gain (36 lbs): Lifestyle changes. Encourage breast feeding. Risk for complications related to delivery and period. TSH = 2.55. A1c = 4.6%. Large risk of prolonged induction of labor. 5. Short cervix/cervical incompetency: Treated with vaginal progesterone up to 37 wks. No known history of risk factors. 6. hx of STI: Negative workup this 7. hx of syphilis: Treated 2015. RPR titer stable at 1:2 and 1:1. 8. advanced paternal age 9. Fetus with evidence of echogenic cardiac focus: No echo performed. Recommend echo. 10. anemia of : monitor H&H 11. gThrombocytopenia: Platelets greater than 100k. Monitor closely. On spectrum for HELLP. 12. gHTN: Asymptomatic. Normotensive. Will hold BP meds and give prns as needed. Repeat labs WNL. No evidence at this time for progression to preeclampsia. Uric acid 4.4. Monitor closely due to potential progression on spectrum related to recent BP elevations. 13. SGA fetus with poor interval growth: AC less than 3% on 3T scan but slowly improved with last scan. NST reactive today. BPP 06/19 on Sunday. EFW = 30% (25.5 wks) --> 32% (28.5 wks) --> 25% (30.5 wks) --> 23% (33.5 wks) --> 14% (37.5 wks) 14. ASH, undiagnosed: monitor closely 15. DVT ppx: Will need lovenox after delivery. Continue SCDs. 16. GBS carrier: Continue PCN. Dispo: Continue current treatment plan. Repeat exam in 4 hours or as indicated. Yumi
[2018-11-18] MEDS ORDERED: PROPOFOL 200 MG/20 ML VIAL ONE (14:59)
[2018-11-18] MEDS ORDERED: Dexamethasone 20 MG/5 ML VIAL ONE (14:59)
[2018-11-18] MEDS ORDERED: PHENYLEPHRINE-NS 100 MCG/ML 10 ML SYRINGE ONE ×2 (14:59→23:35)
[2018-11-18] MEDS ORDERED: Ketorolac Tromethamine 30 MG/ML VIAL ONE ×2 (14:59→23:35)
[2018-11-18] MEDS ORDERED: Succinylcholine Chloride 20 MG/ML 10 ml SYRINGE FS ONE (14:59)
[2018-11-18] MEDS ORDERED: Ondansetron PF 4 MG/2 ML Vial ONE ×2 (14:59→23:35)
[2018-11-18] MEDS ORDERED: Labetalol HCl 100 MG/20 ML VIAL SLOW IVP SCH ×4 (17:00→17:15)
[2018-11-18] MEDS ORDERED: Calcium Gluc 4.6 MEQ/10 ML (100 MG/ML) SLOW IVP PRN (17:06)
[2018-11-18] MEDS ORDERED: hydrALAZINE 20 MG/ML VIAL SLOW IVP PRN ×2 (17:09)
[2018-11-18] MEDS ORDERED: Labetalol HCl 100 MG/20 ML VIAL ONE (17:09)
[2018-11-18] MEDS ORDERED: Magnesium Sulfate 20 GM/WATER 500 ML BAG IVPB SCH (17:15)
--- NOTE | 2018-11-18 17:21 | PDOC.LDPN ---
Labor & Delivery Progress Note - Subjective Subjective: other (Pt denies pain from contractions but is agitated and stressed that things are taking so long.) - Objective Vital signs reviewed and normal: yes Abnormal vital signs: 192/114; 191/106 General: NAD, resting Uterine fundus: non tender Dilation: 6 Effacement: 90% Station: -1 FHT: category 2, early decelerations, late decelerations, variability present [place] contractions every: 2-3 minutes, adequate MVUS ~220 IUPC placed: yes - Assessment (1) Current Visit: Yes Status: Acute Qualifiers: Weeks of gestation: 38 weeks Qualified Code(s): Z3A.38 - 38 weeks gestation of (2) Gestational HTN Code(s): O13.9 - GESTATIONAL HTN W/O SIGNIFICANT PROTEINURIA, UNSP TRIMESTER Current Visit: No Status: Acute Qualifiers: Trimester: third trimester Qualified Code(s): O13.3 - Gestational [ -induced] hypertension without significant proteinuria, third trimester -: 28 yo G1 @ 38.0wks by LMP/2T US presents initially with chest pain, induced for gestational hypertension. 1.)sIUP-late to care. Induced for gestational hypertension. Pt was started on labetalol 2 weeks ago. All prior preE labs normal (borderline 24 hour urine protein). There is some concern for chronic htn/metabolic syndrome since pt was late to care. Pt also has a hx of syphilis treated. 2.)Gestational Hypertension with severe range blood pressures-several bp's in the severe range; the last two being 192/114 and 191/106. 20mg IV labetalol given with instructions to give 40mg IV then 80mg IV if no improvement. Magnesium ordered. PreE labs ordered stat. 3.)Hx of syphilis, treated-RPR 1:2 unchaged from two years ago after adequate treatment. 4.)Late to care Addendum - Attending - Attending Attestation Date/Time: 11/18/181817 I personally evaluated the patient and discussed the management with Dr. Parker I agree with the History, Examination, Assessment and Plan documented above with any addition or exceptions noted below. 28 yo female at 38.1 wks by LMP/25.5 wk admitted for IOL 2/2 gHTN, poor growth, gthrombocytopenia RENZO: 12/01/2018 Now with headache and severe range BP over the last 45 mins. VS reviewed. BP severe range. Fetus cephalic. EFW 6lbs Balloon out at 0600 at 11/18/18 AROM, clear at 0815. IUPC/FSE placed. On pit. Cat 1 tracing. Now /-2 NAD. Fundus nontender 1. sIUP: IOB labs reviewed. Anatomy reviewed. 1 hour gtt 94. UDS negative. NILM/ HPV negative. 3T negative. GBS positive. Flu/Tdap given. 2. Incomplete/late care: Poor dating. Has been routinely followed by M. Dates consistent based on sono. 3. 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 Has been clean since positive UPT. UDS has been negative. UDS negative at admission. No need to screen infant. 4. BMI 55 with excessive maternal weight gain (36 lbs): Lifestyle changes. Encourage breast feeding. Risk for complications related to delivery and period. TSH = 2.55. A1c = 4.6%. Large risk of prolonged induction of labor. 5. Short cervix/cervical incompetency: Treated with vaginal progesterone up to 37 wks. No known history of risk factors. 6. hx of STI: Negative workup this 7. hx of syphilis: Treated 2015. RPR titer stable at 1:2 and 1:1. 8. advanced paternal age 9. Fetus with evidence of echogenic cardiac focus: No echo performed. Recommend echo. 10. anemia of : monitor H&H 11. gThrombocytopenia: Platelets greater than 100k. Monitor closely. On spectrum for HELLP. 12. gHTN with severe range pressures: Now with headache but patient reports it feels like a regular headache. Mag started. BP treated with Labetalol 20 and 40 mg. Hydralazine 10 given. Stat labs pending. 13. SGA fetus with poor interval growth: AC less than 3% on 3T scan but slowly improved with last scan. NST reactive today. BPP 8/8 on Sunday. EFW = 30% (25.5 wks) --> 32% (28.5 wks) --> 25% (30.5 wks) --> 23% (33.5 wks) --> 14% (37.5 wks) 14. ASH, undiagnosed: monitor closely 15. DVT ppx: Will need lovenox after delivery. Continue SCDs. 16. GBS carrier: Continue PCN. Dispo: Continue current treatment plan. Repeat exam in 2 hours or as indicated. Yumi
[2018-11-18 17:33] LABS: #Eosinphils 0.1 thou/uL (0.0-0.7); #Lymphocytes 1.1 thou/uL (1.20-3.40); #Monocytes 0.6 thou/uL (0.11-0.59); #Neutrophils 5.9 thou/uL (1.40-6.50); %Basophils 0.4 % (0.0-1.0); %Monocytes 8.2 % (0.0-10.0); %Neutrophils 76.5 % (42.0-75.0); Hemoglobin 11.3 g/dL (12.0-16.0); Mean Corpuscular HGB CONC 33.5 g/dL (32.0-36.0); Mean Corpuscular Hemoglobin 27.7 pg (27.0-31.0); Mean Corpuscular Volume 82.6 fL (78.0-98.0); Mean Platelet Volume 8.7 fL (7.4-10.4); Platelet Count 146 thou/uL (130-400); RBC Distribution Width 11.9 % (11.5-14.5); Red Blood Cell (RBC) Count 4.07 mill/uL (4.20-5.40); White Blood Cell (WBC) Count 7.8 thou/uL (4.8-10.8)
[2018-11-18 17:55] LABS: ALT (SGPT) 19 U/L (8-55); AST (SGOT) 18 U/L (5-34); Albumin 3.3 g/dL (3.5-5.0); Alkaline Phosphatase 109 U/L (40-150); Anion Gap 12 mmol/L (10-20); BUN (Urea Nitrogen) 4 mg/dL (7.0-18.7); Bilirubin, Total 0.6 mg/dL (0.2-1.2); Calc. Creatinine Clearance 392 mL/min (70-130); Calcium 8.9 mg/dL (7.8-10.44); Carbon Dioxide 19 mmol/L (22-29); Chloride 106 mmol/L (98-107); Estimated GFR-MDRD Greater than 90; Globulin 3.3 g/dL (2.4-3.5); Glucose 78 mg/dL (70-105); Potassium 3.2 mmol/L (3.5-5.1); Protein, Total 6.6 g/dL (6.0-8.3); Sodium 134 mmol/L (136-145); Uric Acid 4.4 mg/dL (2.6-6.0)
[2018-11-18] MEDS ORDERED: hydrALAZINE 20 MG/ML VIAL ONE (18:14)
[2018-11-18] MEDS ORDERED: hydrALAZINE 20 MG/ML VIAL SLOW IVP SCH (18:30)
--- NOTE | 2018-11-18 19:19 | PDOC.LDPN ---
Labor & Delivery Progress Note - Subjective Subjective: comfortable - Objective Vital signs reviewed and normal: yes General: NAD Uterine fundus: non tender Dilation: 6 Effacement: 90% Station: -1 FHT: category 2, late decelerations [place] contractions every: q3min IUPC placed: yes Resuscitative measures: maternal IV fluids - Assessment (1) Late deceleration of heart rate Code(s): O36.8390 - MATERN CARE FOR ABNLT FETL HRT RATE OR RHYM, UNSP TRI, UNSP Current Visit: Yes Status: Acute (2) Gestational HTN Code(s): O13.9 - GESTATIONAL HTN W/O SIGNIFICANT PROTEINURIA, UNSP TRIMESTER Current Visit: No Status: Acute Qualifiers: Trimester: third trimester Qualified Code(s): O13.3 - Gestational [ -induced] hypertension without significant proteinuria, third trimester Plan: continue plan of care, pitocin for augmentation -: 28 yo G1 @ 38.0wks by LMP/2T US presents initially with chest pain, induced for gestational hypertension. 1.) sIUP -late to care. Induced for gestational hypertension. Pt was started on labetalol 2 weeks ago. All prior preE labs normal (borderline 24 hour urine protein). There is some concern for chronic htn/metabolic syndrome since pt was late to care. Pt also has a hx of syphilis treated. 2.) Gestational Hypertension with severe range blood pressures-several bp's in the severe range; Previously: 192/114 and 191/106. Given 20mg IV labetalol followed by 40mg IV. BP corrected to 119/63. Magnesium currently being administered. PreE labs ordered stat - pending. 3.) Hx of syphilis, treated-RPR 1:2 unchaged from two years ago after adequate treatment. 4.) Late to care Will attempt to restart pitocin and see if patient tolerates. Will continue to monitor.
--- NOTE | 2018-11-18 21:19 | PDOC.LDPN ---
Labor & Delivery Progress Note - Subjective Subjective: comfortable - Objective Vital signs reviewed and normal: yes Abnormal vital signs: BP 154/80 General: NAD Uterine fundus: non tender Dilation: 6 Effacement: 100% Station: 0 FHT: category 2, variability present [place] contractions every: q5min IUPC placed: yes Resuscitative measures: maternal IV fluids - Assessment (1) Late deceleration of heart rate Code(s): O36.8390 - MATERN CARE FOR ABNLT FETL HRT RATE OR RHYM, UNSP TRI, UNSP Current Visit: Yes Status: Acute (2) Gestational HTN Code(s): O13.9 - GESTATIONAL HTN W/O SIGNIFICANT PROTEINURIA, UNSP TRIMESTER Current Visit: No Status: Acute Qualifiers: Trimester: third trimester Qualified Code(s): O13.3 - Gestational [ -induced] hypertension without significant proteinuria, third trimester Plan: continue plan of care, pitocin for augmentation -: 28 yo G1 @ 38.0wks by LMP/2T US presents initially with chest pain, induced for gestational hypertension. 1.) sIUP -late to care. Induced for gestational hypertension. Pt was started on labetalol 2 weeks ago. All prior preE labs normal (borderline 24 hour urine protein). There is some concern for chronic htn/metabolic syndrome since pt was late to care. Pt also has a hx of syphilis treated. 2.) Gestational Hypertension with severe range blood pressures-several bp's in the severe range; Previously: 192/114 and 191/106. Given 20mg IV labetalol followed by 40mg IV. BP corrected to 119/63. Magnesium currently being administered. PreE labs ordered stat - pending. Patient had another elevated BP which correct. Will have labetalol PRN. 3.) Hx of syphilis, treated-RPR 1:2 unchaged from two years ago after adequate treatment. 4.) Late to care Patient on pitocin - tolerating well. Will recheck in 2 hours for cervical change.
[2018-11-18] MEDS: Labetalol HCl 100 MG/20 ML VIAL SLOW IVP PRN (21:35)
--- NOTE | 2018-11-18 23:10 | PDOC.LDPN ---
Labor & Delivery Progress Note - Subjective Subjective: comfortable - Objective Vital signs reviewed and normal: yes Abnormal vital signs: 136/70 General: NAD Uterine fundus: non tender Dilation: 6 Effacement: 100% Station: 0 FHT: category 1, variability present [place] contractions every: q4min IUPC placed: yes - Assessment (1) Late deceleration of heart rate Code(s): O36.8390 - MATERN CARE FOR ABNLT FETL HRT RATE OR RHYM, UNSP TRI, UNSP Current Visit: Yes Status: Acute (2) Gestational HTN Code(s): O13.9 - GESTATIONAL HTN W/O SIGNIFICANT PROTEINURIA, UNSP TRIMESTER Current Visit: No Status: Acute Qualifiers: Trimester: third trimester Qualified Code(s): O13.3 - Gestational [ -induced] hypertension without significant proteinuria, third trimester Plan: continue plan of care, pitocin for augmentation -: 28 yo G1 @ 38.0wks by LMP/2T US presents initially with chest pain, induced for gestational hypertension. 1.) sIUP -late to care. Induced for gestational hypertension. Pt was started on labetalol 2 weeks ago. All prior preE labs normal (borderline 24 hour urine protein). There is some concern for chronic htn/metabolic syndrome since pt was late to care. Pt also has a hx of syphilis treated. 2.) Gestational Hypertension with severe range blood pressures-several bp's in the severe range; Previously: 192/114 and 191/106. Given 20mg IV labetalol followed by 40mg IV. BP corrected to 119/63. Magnesium currently being administered. PreE labs ordered stat - pending. Will have labetalol PRN. BPs have been wnl for the past 2 hours. 3.) Hx of syphilis, treated-RPR 1:2 unchaged from two years ago after adequate treatment. 4.) Late to care Cervical check remains unchanged. Will discuss w/ patient proceeding to c- section for arrest of labor. Patient has had 6 hours of adequate contractions ( adequate MVUs) with no progression of dilation. Addendum - Attending - Attending Attestation Date/Time: 11/19/18 0514 I personally evaluated the patient and discussed the management with Dr. Gant on 11/18/18 I agree with the History, Examination, Assessment and Plan documented above with any addition or exceptions noted below- Patient now with adequate ctx x 6 hours and no cervical change. Discussed situation with patient and recommendation to proceed with . Risks/benefits discussed. Questions answered. Patient and family verbalized understanding and desire to proceed. Anesthesia notified. Will proceed with 1* C/S for arrest of active phase.
[2018-11-18] MEDS ORDERED: Azithromycin 500 MG in Sodium Chloride 0.9% 250 ML 250 ML IVPB SCH (23:30)
[2018-11-18] MEDS ORDERED: Bisacodyl 10 MG SUPP PR PRN (23:30)
[2018-11-18] MEDS ORDERED: CEFAZOLIN/Water 2 GM/20 ML SYRINGE SLOW IVP SCH (23:30)
[2018-11-18] MEDS ORDERED: Bicitra 30 ML UDCUP PO SCH (23:30)
[2018-11-18] MEDS ORDERED: diphenhydrAMINE 25 MG CAP PO PRN (23:30)
[2018-11-18] MEDS ORDERED: Lanolin Ointment 7 GM TUBE TOP PRN (23:30)
[2018-11-18] MEDS ORDERED: HYDROcodone/Acetaminophen 5/325 mg Tablet PO PRN ×2 (23:30)
[2018-11-18] MEDS ORDERED: Simethicone Chewable 80 MG TAB PO PRN (23:30)
[2018-11-18] MEDS ORDERED: CEFAZOLIN 2 GM/50 ML BAG ONE (23:32)
[2018-11-18] MEDS ORDERED: Morphine PF 1 MG/ML SYR ONE (23:34)
[2018-11-18] MEDS ORDERED: ePHEDrine/0.9% NaCl/PF SYRINGE 50 mg/10 ml ONE (23:35)
[2018-11-18] MEDS ORDERED: Bupivacaine 0.75% W/DEXTROSE 8.25% 2 ML AMP ONE (23:35)
[2018-11-18] MEDS ORDERED: Dexamethasone 4 mg/ml Vial ONE (23:35)
[2018-11-18] MEDS ORDERED: Oxytocin 10 UNITS/ML VIAL ONE (23:35)
[2018-11-18] MEDS ORDERED: CEFAZOLIN 3 GM, Admixture Fee 1 EACH in Sodium Chloride 0.9% 100 ML IVPB SCH (23:45)
[2018-11-19] MEDS ORDERED: Bupivacaine 0.75% W/DEXTROSE 8.25% 2 ML AMP ONE (00:15)
[2018-11-19] MEDS ORDERED: Lidocaine 2% 10 ML INJ ONE (00:18)
[2018-11-19] MEDS ORDERED: PROPOFOL 20 ML ONE (00:25)
[2018-11-19] MEDS ORDERED: Succinylcholine Chloride 20 MG/ML 10 ml SYRINGE FS ONE (00:25)
[2018-11-19] MEDS ORDERED: Midazolam HCl 2 mg/2 ml Vial ONE (00:36)
[2018-11-19 01:00] LABS: Actual Bicarbonate (HCO3a) 26.9 mEq/L (22-28); Base Excess (BEa) -2.9 mEq/L (-2.0 to +3.0)
[2018-11-19] MEDS ORDERED: L&D-Morphine 4 MG/ML VIAL SLOW IVP PRN (01:39)
[2018-11-19] MEDS ORDERED: HYDROmorphone 2 MG/ML VIAL SLOW IVP PRN (01:39)
[2018-11-19] MEDS ORDERED: Meperidine HCl/PF 25 MG/ML VIAL SLOW IVP PRN (01:39)
[2018-11-19] MEDS ORDERED: Ondansetron HCl/PF 4 MG/2 ML Vial IVP PRN (01:39)
[2018-11-19] MEDS ORDERED: Fentanyl 100 MCG/2 ML VIAL ONE (01:41)
[2018-11-19] MEDS ORDERED: Ketorolac Tromethamine 30 MG/ML VIAL IVP SCH (01:45)
[2018-11-19] MEDS ORDERED: Naloxone HCl 0.4 mg/ml Vial IV PRN (02:02)
[2018-11-19] MEDS ORDERED: fentaNYL Citrate/PF 2,000 MCG in Sodium Chloride 0.9% 60 ML IV PRN (02:02)
[2018-11-19] MEDS ORDERED: diphenhydrAMINE 50 MG/ML VIAL IM PRN (02:02)
[2018-11-19] MEDS ORDERED: diphenhydrAMINE 25 MG CAP PO PRN (02:02)
[2018-11-19] MEDS ORDERED: Zolpidem Tartrate 5 MG TAB PO PRN (02:02)
[2018-11-19] MEDS ORDERED: Promethazine HCl 25 MG/ML VIAL IM PRN (02:02)
[2018-11-19] MEDS ORDERED: diphenhydrAMINE 50 MG/ML VIAL IVP PRN (02:02)
[2018-11-19] MEDS ORDERED: Ondansetron PF 4 MG/2 ML Vial IVP PRN (02:02)
[2018-11-19] MEDS ORDERED: Communication Order-Pharmacy FS SCH (02:15)
[2018-11-19] MEDS ORDERED: Meperidine HCl/PF 25 MG/ML VIAL ONE (02:21)
[2018-11-19] MEDS: Magnesium Sulfate 20 gm/500 ml 20 GM/500 ML BAG IVPB SCH ×2 (04:04→13:46)
[2018-11-19] MEDS: Lactated Ringer's 1,000 ML IV SCH (05:29)
[2018-11-19] MEDS: Labetalol HCl 100 MG/20 ML VIAL SLOW IVP PRN (05:38)
[2018-11-19] MEDS ORDERED: Ibuprofen 800 MG TAB PO SCH (06:00)
--- NOTE | 2018-11-19 06:11 | PDOC.EVN ---
Event Note - Event Note Event Note: Mag Check Patient resting comfortably in bed. Patient denies pain, headache, vision changes, palpitations, NV, or LE edema. Patient's pain has been controlled w/ CUSTOMER QUALITY SPECIALIST pump. Patient has no concerns at this time. Vitals: BP 135/80, RR 18, HR 70 PE: General: patient resting, NAD Resp: CTAB, non labored breathing Cardio: RRR, no murmurs, rubs, gallops GI: non tender abdomen, incision covered - dry MSK: patellar reflexes 1+ in bilateral lower extremities Psych: AXOX3 A&P: Continue to do Mg checks every 2 hours. Pain controlled w/ CUSTOMER QUALITY SPECIALIST pump. Patient advanced to clear liquid diet. Will continue to monitor vitals. Addendum - Attending - Attending Attestation Date/Time: 11/19/18 1121 I personally evaluated the patient and discussed the management with Dr. Parker I agree with the History, Examination, Assessment and Plan documented above with any addition or exceptions noted below. 28 yo now female s/p LTCS at 38.1 wks on 11/20/18 at 00:37 for failure to progress POD#0 HD#2 Doing well. Denies CP, SOB, vision changes, CP, epigastric pain, N/V. Lochia mild. VS reviewed. BP normotensive. Occasional elevated to severe. NAD. But reports abdominal pain. Fundus appropriately tender Wound vac in place and functioning Reflex +2 bilaterally 1. s/p LTCS: Continue routine pp/po care. 2. Incomplete/late care 3. 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 Has been clean since positive UPT. UDS has been negative. UDS negative at admission. No need to screen infant. 4. BMI 55 with excessive maternal weight gain (36 lbs): Lifestyle changes. Encourage breast feeding. Risk for complications related period. TSH = 2.55. A1c = 4.6%. 5. Short cervix/cervical incompetency: Treated with vaginal progesterone up to 37 wks. No known history of risk factors. 6. hx of STI: Negative workup this 7. hx of syphilis: Treated 2015. RPR titer stable at 1:2 and 1:1. 8. advanced paternal age 9. Fetus with evidence of echogenic cardiac focus: Awaiting echo. 10. anemia of : monitor H&H 11. gThrombocytopenia: Platelets greater than 100k. Monitor closely. On spectrum for HELLP. 12. SGA fetus with poor interval growth 13. ASH, undiagnosed: monitor closely 14. DVT ppx: Start lovenox. Will dose at 60 mg due to body weight. Trend antiXa level to confirm dosing appropriate for ppx. 15. 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 Preeclampsia with severe features due to headache and severe range BP: Continue mag for at least 24 hours. Asymptomatic at present. Monitor BP closely. Occasional severe range. Start oral meds if continues. Will need ASA ppx with future pregnancies but encourage patient to review risk of future pregnancies. No s/sx of mag tox. Dispo: Continue current plan. q 4 hour mag checks. Yumi
[2018-11-19] MEDS ORDERED: Labetalol 100 MG TAB PO SCH ×2 (09:00→11:00)
[2018-11-19] MEDS ORDERED: Adacel (T-DAP) 0.5 ML SYRINGE IM ONE (09:00)
--- NOTE | 2018-11-19 09:20 | PDOC.OPDEL ---
OB Operative/Delivery Note Delivery Dr/Surgeon: Daniel Assist: Duarte; Attending: Colt Moore Pre-Delivery Diagnosis: medically indicated induction, other (failure to progress) Procedure/Post Delivery Dx: primary low transverse CS Weeks gestation: 38 (38.1) Anesthesia: other (general) - Additional Findings/Plan Placenta delivered: spontaneous findings: low transverse hysterotomy without extension Estimated blood loss: 1175 Compilations/Other Findings: Date of Procedure: 11/19/18 Resident Surgeon: Vanessa Kennedy, PGY-2, MD Interventional Radiology Rn Surgeon: Yesika Ramachandran, PGY-2, DO Attending Surgeon: Anay Moore MD; Dr. Gregory Procedure: primary low transverse caesarean section Preoperative Diagnosis: 1)Term intrauterine 2) Arrest of active phase 3) Gestation Hypertension with severe range blood pressures Postoperative Diagnosis: 1) Term intrauterine , delivered 2) Arrest of active phase 3) Gestational Hypertension with severe range blood pressures 4) OP position and asynclytic head Anesthesia: general Indications: The patient is a 28 year old G1,P0 female at 38.1 weeks gestation who presented initially with chest pain one day prior to scheduled induction with indication of gestational hypertension, now s/p primary low transverse section 2/2 failure to progress/failure to dilate during induction. Procedure in Detail: After risks, benefits, and alternatives were explained to the patient, she gave informed consent. Pre-operative antibiotics included Cefazolin 3 gram IV and Azithromicin 500mg IV. The patient was taken to the operating room having already received an epidural. Anesthesia converted to general when unable to achieve adequate regional anesthesia. She was placed in the supine position with a left tilt and prepped and draped in usual sterile fashion. A Pfannenstiel incision was made with a scalpel and carried down to the level of the fascia which was sharply nicked. The fascial cut was extended bilaterally with Wiggins sissors. The inferior and superior edges of the cut fascial edges were elevated with Miquel clamps and the underlying rectus muscles were sharply and bluntly dissected free. The recti were divided digitally and retracted manually. The peritoneum was entered bluntly and retracted manually. The angie-o retractor was placed. A low transverse score was made with the scalpel and the uterus was entered in the midline with the scalpel. Clear fluid was seen. The hysterotomy was extended manually. The infant was noted to be OP and asynclitic and was easily delivered by fundal pressure. Mouth and nares were bulb suctioned. Cord clamped and cut and a grossly normal female was handed to waiting nurse. Cord blood was obtained for cord gas. Placenta was manually extracted, found to be intact with 3 vessel cord and sent to pathology. The endometrium was curetted with a dry lap. The uterus was closed with a running locking 0-Monocryl suture followed by a running non-locking 0-Monocryl imbricating suture. Following this hemostasis was noted. The fascia was closed with a running non-locking 0- Vicryl suture. The subcutaneous tissue was irrigated and there were no bleeders. The subcutaneous tissue was approximated with simple interrupted stitches using 2-0 plain gut. The skin was approximated with jose de jesus and a wound vac placed. All counts were correct. The patient tolerated the procedure well and was taken to the recovery room in stable condition. Estimated Blood Loss: 1175 ml Complications: None Specimens: Cord blood sent to lab for blood type Findings: Grossly normal female infant with Apgars of 8 and 9. Grossly normal placenta with 3 vessel cord discarded. Drains: [place] to gravity draining clear urine Post delivery plan: recovery in LICU Addendum - Attending - Attending Attestation Date/Time: 11/19/18 01:30 I was present, assisted, and supervised the 1* LCT C/S for this 28 yo @ 38.4 weeks secondary to arrest of active phase. Viable female infant in vtx presentation, OP position and asynclytic. Apgars 8/9. QBL 1175 mL. Residents: Erika .
[2018-11-19] MEDS ORDERED: HYDROcodone/Acetaminophen 7.5/325 mg Tablet PO PRN ×2 (10:01→21:10)
[2018-11-19] MEDS ORDERED: HYDROcodone/Acetaminophen 10/325 mg Tablet PO PRN ×2 (10:01→21:10)
[2018-11-19] MEDS: Prenatal Vitamin 1 TAB PO SCH (10:28)
[2018-11-19] MEDS: Dextrose 5%-Lactated Ringers 1,000 ML IV SCH (10:32)
[2018-11-19] MEDS: Docusate Calcium (SURFAK) 240 MG CAP PO SCH (10:33)
[2018-11-19] MEDS ORDERED: hydrALAZINE 20 MG/ML VIAL SLOW IVP PRN (10:44)
[2018-11-19] MEDS: Enoxaparin Sodium 60 MG/0.6 ML SYRINGE SC SCH (10:54)
--- NOTE | 2018-11-19 11:49 | PDOC.OBMPN ---
R OB LDICU PN: Subj - Interval History Hospital Day: 3 Chief Complaint: Mag Check Indentification: 28 year old G1,P0 female at 38.1 weeks gestation Interval History: Pt doing well. Pain not being well managed by AUTO DAMAGE TRAINEE pump at this time. R OB LDICU PN: Obj - Maternal Vital signs: BP: [143/81] HR: [79] RR: [16] R OB LDICU PN: Exam - Physical Exam General: NAD, awake, alert and oriented HEENT: normocephalic and atraumatic Neck: trachea midline Breast: symmetric Heart: RRR, normal S1/S2, no murmurs/rubs/gallops, pulses present, no edema General: CTAB, no respiratory distress, good air movement, no rales/rhonchi, no wheezing Abdomen: soft, non-tender, bowel sound present Neurological: sensation to pain,touch and proprioception grossly normal, DTR +2 Skin: capillary refill <2 seconds - Pelvic Exam : perineal incision/laceration healing well, no discharge, no edema Deviation from normal: Incision very tender. R OB LDICU PN: Data - Labs Lab results: Laboratory Results - last 24 hr 11/18/18 11/18/18 11/19/18 17:21 17:21 00:43 WBC 7.8 RBC 4.07 L Hgb 11.3 L Hct 33.6 L MCV 82.6 MCH 27.7 MCHC 33.5 RDW 11.9 Plt Count 146 MPV 8.7 Neutrophils % 76.5 H Lymphocytes % 14.0 L Monocytes % 8.2 Eosinophils % 1.0 Basophils % 0.4 Neutrophils # 5.9 Lymphocytes # 1.1 L Monocytes # 0.6 H Eosinophils # 0.1 Basophils # 0.0 Bicarbonate Actual 26.9 ABG pCO2 69.7 H* ABG Base Excess -2.9 L Cord ABG pH 7.21 L* Sodium 134 L Potassium 3.2 L Chloride 106 Carbon Dioxide 19 L Anion Gap 12 BUN 4 L Creatinine 0.49 L Estimated GFR (MDRD) Greater than 90 Glucose 78 Uric Acid 4.4 Calcium 8.9 Total Bilirubin 0.6 AST 18 ALT 19 Alkaline Phosphatase 109 Serum Total Protein 6.6 Albumin 3.3 L Globulin 3.3 Albumin/Globulin Ratio 1.0 L R OB LDICU PN:A/P - Problem List (1) Current Visit: Yes Status: Acute Qualifiers: Weeks of gestation: 38 weeks Qualified Code(s): Z3A.38 - 38 weeks gestation of Assessment and Plan: Pre-Eclampsia with Severe Features -Pt on magnesium drip at this time. DTR 2+. No sign of toxcicity. -BP still elevated since last check in severe range. Will start pt on labetolol 200 mg oral BID. Labetolol IV prn if pressures remain elevated. -continue mag checks q4 hrs. Pt post day 0 from Primary -Pt reported still having lots of pain. AUTO DAMAGE TRAINEE pump not helping. Will notify anesthesia at this time. (2) Sev preeclamp-del w/ complication Current Visit: Yes Status: Acute Code(s): O14.15 - SEVERE PRE-ECLAMPSIA, COMPLICATING THE PUERPERIUM (3) PRE-ECLAMPSIA W SEVERE Current Visit: Yes Status: Acute Addendum - Attending - Attending Attestation Date/Time: 11/19/18 1341 I personally evaluated the patient and discussed the management with Dr. Parker I agree with the History, Examination, Assessment and Plan documented above with any addition or exceptions noted below. 28 yo now female s/p LTCS at 38.1 wks on 11/20/18 at 00:37 for failure to progress POD#0 HD#2 Doing well. Denies CP, SOB, vision changes, CP, epigastric pain, N/V. Lochia mild. Pain now better improved. VS reviewed. BP mild range. NAD. RRR CTA bilaterally Fundus appropriately tender Wound vac in place and functioning Reflex +2 bilaterally 1. s/p LTCS: Continue routine pp/po care. 2. Incomplete/late care 3. 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 Has been clean since positive UPT. UDS has been negative. UDS negative at admission. No need to screen infant. 4. BMI 55 with excessive maternal weight gain (36 lbs): Lifestyle changes. Encourage breast feeding. Risk for complications related period. TSH = 2.55. A1c = 4.6%. 5. Short cervix/cervical incompetency: Treated with vaginal progesterone up to 37 wks. No known history of risk factors. 6. hx of STI: Negative workup this 7. hx of syphilis: Treated 2015. RPR titer stable at 1:2 and 1:1. 8. advanced paternal age 9. Fetus with evidence of echogenic cardiac focus: Awaiting echo. 10. anemia of : monitor H&H 11. gThrombocytopenia: Platelets greater than 100k. Monitor closely. On spectrum for HELLP. Repeat labs pending. 12. SGA fetus with poor interval growth 13. ASH, undiagnosed: monitor closely 14. DVT ppx: Start lovenox. Will dose at 60 mg due to body weight. Trend antiXa level to confirm dosing appropriate for ppx. 15. 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 Preeclampsia with severe features due to headache and severe range BP: Continue mag for at least 24 hours. Asymptomatic at present. Monitor BP closely. Now on oral labetalol. Will need ASA ppx with future pregnancies but encourage patient to review risk of future pregnancies. No s/sx of mag tox. 17. PPH: QBL for section > 1L. Asymptomatic. Postop labs pending. Start iron. Dispo: Continue current plan. q 4 hour mag checks. Yumi
[2018-11-19] MEDS: Acetaminophen 1,000 MG in Premix Bag 1 BAG IVPB SCH ×2 (12:23→19:22)
--- NOTE | 2018-11-19 14:24 | PDOC.OBMPN ---
R OB LDICU PN: Subj - Interval History Hospital Day: 3 Chief Complaint: Pre-eclampsia with severe features- mag check Indentification: post day 0 Interval History: Pain is better controlled though pt reports it makes her feel sleepy FMR OB LDICU PN: Obj - Maternal Vital signs: BP: [137/73] HR: [81] RR: [16] Wt: [145kg] - Urine output I&O: 300ml in bag via allen R OB LDICU PN: Exam - Physical Exam General: NAD, awake, alert and oriented HEENT: normocephalic and atraumatic, EOMI, grossly normal vision, grossly normal hearing Neck: supple, trachea midline Chest: non-tender to palpation Breast: symmetric Heart: RRR, normal S1/S2 General: CTAB, no respiratory distress Abdomen: soft, bowel sound present Musculoskeletal: pulses present, no atrophy Neurological: DTR +2, no focal deficit Skin: no rash, good tugor : appropriately tender Lymphatic: no purpura, no petechia Psychiatric: intact recent and remote memory, good judgement and insight - Pelvic Exam : perineal incision/laceration healing well R OB LDICU PN: Data - Labs Lab results: Laboratory Results - last 24 hr 11/18/18 11/18/18 11/19/18 17:21 17:21 00:43 WBC 7.8 RBC 4.07 L Hgb 11.3 L Hct 33.6 L MCV 82.6 MCH 27.7 MCHC 33.5 RDW 11.9 Plt Count 146 MPV 8.7 Neutrophils % 76.5 H Lymphocytes % 14.0 L Monocytes % 8.2 Eosinophils % 1.0 Basophils % 0.4 Neutrophils # 5.9 Lymphocytes # 1.1 L Monocytes # 0.6 H Eosinophils # 0.1 Basophils # 0.0 Bicarbonate Actual 26.9 ABG pCO2 69.7 H* ABG Base Excess -2.9 L Cord ABG pH 7.21 L* Sodium 134 L Potassium 3.2 L Chloride 106 Carbon Dioxide 19 L Anion Gap 12 BUN 4 L Creatinine 0.49 L Estimated GFR (MDRD) Greater than 90 Glucose 78 Uric Acid 4.4 Calcium 8.9 Total Bilirubin 0.6 AST 18 ALT 19 Alkaline Phosphatase 109 Serum Total Protein 6.6 Albumin 3.3 L Globulin 3.3 Albumin/Globulin Ratio 1.0 L FMR OB LDICU PN:A/P - Problem List (1) PRE-ECLAMPSIA W SEVERE Current Visit: Yes Status: Acute (2) Sev preeclamp-del w/ complication Current Visit: Yes Status: Acute Code(s): O14.15 - SEVERE PRE-ECLAMPSIA, COMPLICATING THE PUERPERIUM Discussion: Pre-Eclampsia with Severe Features -Pt on magnesium drip at this time. DTR 2+. No headache/cp/vision change/sob. No sign of toxicicity. -BP is in better ranges but uncontrolled earlier today. continue labetolol 200 mg oral BID. Labetolol IV prn. -continue mag checks q4 hrs. Pt post day 0 from Primary -Pt reported better control after anesthesia increased BARIATRIC PHYSICIAN dosing. Addendum - Attending - Attending Attestation Date/Time: 11/19/18 [id number] I personally evaluated the patient and discussed the management with Dr. Parker I agree with the History, Examination, Assessment and Plan documented above with any addition or exceptions noted below. 28 yo now female s/p LTCS at 38.1 wks on 11/20/18 at 00:37 for failure to progress POD#0 HD#2 Doing well. Denies CP, SOB, vision changes, CP, epigastric pain, N/V. Lochia mild. Pain stable. VS reviewed. BP mild range. UOP 100 to 200 mL/hr NAD. RRR CTA bilaterally Fundus appropriately tender Wound vac in place and functioning Reflex +2 bilaterally 1. s/p LTCS: Continue routine pp/po care. 2. Incomplete/late care 3. 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 Has been clean since positive UPT. UDS has been negative. UDS negative at admission. No need to screen . 4. BMI 55 with excessive maternal weight gain (36 lbs): Lifestyle changes. Encourage breast feeding. Risk for complications related period. TSH = 2.55. A1c = 4.6%. 5. Short cervix/cervical incompetency: Treated with vaginal progesterone up to 37 wks. No known history of risk factors. 6. hx of STI: Negative workup this 7. hx of syphilis: Treated 2015. RPR titer stable at 1:2 and 1:1. 8. advanced paternal age 9. Fetus with evidence of echogenic cardiac focus: Awaiting echo. 10. anemia of : monitor H&H 11. gThrombocytopenia: Platelets greater than 100k. Monitor closely. On spectrum for HELLP. Repeat labs stable. 12. SGA fetus with poor interval growth 13. ASH, undiagnosed: monitor closely 14. DVT ppx: Start lovenox. Will dose at 60 mg due to body weight. Trend antiXa level to confirm dosing appropriate for ppx. 15. 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 Preeclampsia with severe features due to headache and severe range BP: Continue mag for at least 24 hours. Asymptomatic at present. Monitor BP closely. Now on oral labetalol. Will need ASA ppx with future pregnancies but encourage patient to review risk of future pregnancies. No s/sx of mag tox. Continue to trend UOP closely. 17. PPH: QBL for section > 1L. Asymptomatic. Postop labs pending. Start iron. Dispo: Continue current plan. q 4 hour mag checks. Yumi
[2018-11-19 14:46] LABS: Hemoglobin 9.2 g/dL (12.0-16.0); Mean Corpuscular Hemoglobin 28.4 pg (27.0-31.0); Mean Corpuscular Volume 83.4 fL (78.0-98.0); Mean Platelet Volume 8.4 fL (7.4-10.4); Platelet Count 142 thou/uL (130-400); RBC Distribution Width 11.9 % (11.5-14.5); Red Blood Cell (RBC) Count 3.24 mill/uL (4.20-5.40); White Blood Cell (WBC) Count 11.9 thou/uL (4.8-10.8)
--- NOTE | 2018-11-19 17:22 | PDOC.OBMPN ---
[facility] OB LDICU PN: Subj - Interval History Hospital Day: 3 Chief Complaint: Pre-eclampsia with severe features- mag check Indentification: Interval History: Pain better under control, no cp/COLON/scotoma/sob [facility] OB LDICU PN: Obj - Maternal Vital signs: BP: [143/83] HR: [90] RR: [60] Tmax: [98.1] - Urine output I&O: Urine output: 250ml/hr R OB LDICU PN: Exam - Physical Exam General: NAD, awake, alert and oriented HEENT: EOMI, grossly normal vision, grossly normal hearing Neck: supple, trachea midline Chest: non-tender to palpation Breast: symmetric Heart: RRR, normal S1/S2 General: CTAB, no respiratory distress Abdomen: soft, bowel sound present Musculoskeletal: pulses present, no atrophy Neurological: DTR +2, no focal deficit Skin: no rash, good tugor Lymphatic: no purpura, no petechia Psychiatric: intact recent and remote memory, good judgement and insight R OB LDICU PN: Data - Labs Lab results: Laboratory Results - last 24 hr 11/18/18 11/18/18 11/19/18 17:21 17:21 00:43 WBC 7.8 RBC 4.07 L Hgb 11.3 L Hct 33.6 L MCV 82.6 MCH 27.7 MCHC 33.5 RDW 11.9 Plt Count 146 MPV 8.7 Neutrophils % 76.5 H Lymphocytes % 14.0 L Monocytes % 8.2 Eosinophils % 1.0 Basophils % 0.4 Neutrophils # 5.9 Lymphocytes # 1.1 L Monocytes # 0.6 H Eosinophils # 0.1 Basophils # 0.0 Heparin Anti-Xa, LM Wt Bicarbonate Actual 26.9 ABG pCO2 69.7 H* ABG Base Excess -2.9 L Cord ABG pH 7.21 L* Sodium 134 L Potassium 3.2 L Chloride 106 Carbon Dioxide 19 L Anion Gap 12 BUN 4 L Creatinine 0.49 L Estimated GFR (MDRD) Greater than 90 Glucose 78 Uric Acid 4.4 Calcium 8.9 Total Bilirubin 0.6 AST 18 ALT 19 Alkaline Phosphatase 109 Serum Total Protein 6.6 Albumin 3.3 L Globulin 3.3 Albumin/Globulin Ratio 1.0 L 11/19/18 11/19/18 14:17 14:17 WBC 11.9 H RBC 3.24 L Hgb 9.2 L Hct 27.1 L MCV 83.4 MCH 28.4 MCHC 34.0 RDW 11.9 Plt Count 142 MPV 8.4 Neutrophils % Lymphocytes % Monocytes % Eosinophils % Basophils % Neutrophils # Lymphocytes # Monocytes # Eosinophils # Basophils # Heparin Anti-Xa, LM Wt 0.16 Bicarbonate Actual ABG pCO2 ABG Base Excess Cord ABG pH Sodium Potassium Chloride Carbon Dioxide Anion Gap BUN Creatinine Estimated GFR (MDRD) Glucose Uric Acid Calcium Total Bilirubin AST ALT Alkaline Phosphatase Serum Total Protein Albumin Globulin Albumin/Globulin Ratio [facility] OB LDICU PN:A/P - Problem List (1) PRE-ECLAMPSIA W SEVERE Current Visit: Yes Status: Acute (2) Sev preeclamp-del w/ complication Current Visit: Yes Status: Acute Code(s): O14.15 - SEVERE PRE-ECLAMPSIA, COMPLICATING THE PUERPERIUM Discussion: Pre-Eclampsia with Severe Features -Pt on magnesium drip at this time. DTR 2+. No headache/cp/vision change/sob. No sign of toxicity. -BP is in good ranges (SBP 140s over last 2 hrs except one isolate 157) but uncontrolled earlier today. continue labetolol 200 mg oral BID. Labetolol IV prn. -continue mag checks q4 hrs. Pt post day 0 from Primary -Pt reported better control after anesthesia increased WEB MARKETING COORDINATOR dosing. Addendum - Attending - Attending Attestation Date/Time: 11/19/18 3062 I personally evaluated the patient and discussed the management with Dr. Cottrell I agree with the History, Examination, Assessment and Plan documented above with any addition or exceptions noted below. 28 yo now female s/p LTCS at 38.1 wks on 11/20/18 at 00:37 for failure to progress POD#0 HD#2 Doing well. Denies CP, SOB, vision changes, CP, epigastric pain, N/V. Lochia mild. Pain stable. VS reviewed. BP mild range. UOP 250 mL/hr NAD. RRR CTA bilaterally Fundus appropriately tender Wound vac in place and functioning Reflex +2 bilaterally 1. s/p LTCS: Continue routine pp/po care. 2. Incomplete/late care 3. 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 Has been clean since positive UPT. UDS has been negative. UDS negative at admission. No need to screen . 4. BMI 55 with excessive maternal weight gain (36 lbs): Lifestyle changes. Encourage breast feeding. Risk for complications related period. TSH = 2.55. A1c = 4.6%. 5. Short cervix/cervical incompetency: Treated with vaginal progesterone up to 37 wks. No known history of risk factors. 6. hx of STI: Negative workup this 7. hx of syphilis: Treated 2015. RPR titer stable at 1:2 and 1:1. 8. advanced paternal age 9. Fetus with evidence of echogenic cardiac focus: Awaiting echo. 10. anemia of : monitor H&H 11. gThrombocytopenia: Platelets greater than 100k. Monitor closely. On spectrum for HELLP. Repeat labs stable. 12. SGA fetus with poor interval growth 13. ASH, undiagnosed: monitor closely 14. DVT ppx: Start lovenox. Will dose at 60 mg due to body weight. AntiXa level obtained but timed inappropriately. Will continue with dose of 60 mg. Will have standing weight performed in AM and calculate ppx of 0.5mg/kg. 15. 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 Preeclampsia with severe features due to headache and severe range BP: Continue mag for at least 24 hours. Asymptomatic at present. Monitor BP closely. Now on oral labetalol. Will need ASA ppx with future pregnancies but encourage patient to review risk of future pregnancies. No s/sx of mag tox. Continue to trend UOP closely. 17. PPH: QBL for section > 1L. Asymptomatic. Postop labs with suspected drop in H&H. Start iron. Dispo: Continue current plan. q 4 hour mag checks. Yumi
[2018-11-19] MEDS ORDERED: Ferrous Sulfate 325 MG TAB PO SCH (20:00)
--- NOTE | 2018-11-19 22:01 | PDOC.OBMPN ---
R OB LDICU PN: Subj - Interval History Hospital Day: 3 Chief Complaint: Chest Discomfort Interval History: SBPs ranging from 120-130s since last Mg check w/ increased UO as well. R OB LDICU PN: Obj - Maternal Vital signs: BP: 136/70 HR: 100 Pox: 100% on RA Wt: 145 kg - Urine output I&O: 550mL/hr last 2 hours charted R OB LDICU PN: Exam - Physical Exam General: NAD, awake, alert and oriented HEENT: normocephalic and atraumatic, grossly normal vision, grossly normal hearing Heart: RRR, normal S1/S2, no edema General: CTAB, no respiratory distress Abdomen: fundus(cm), other (Appropriately TTP) R OB LDICU PN: Data - Labs Lab results: Laboratory Results - last 24 hr 11/19/18 11/19/18 11/19/18 00:43 14:17 14:17 WBC 11.9 H RBC 3.24 L Hgb 9.2 L Hct 27.1 L MCV 83.4 MCH 28.4 MCHC 34.0 RDW 11.9 Plt Count 142 MPV 8.4 Heparin Anti-Xa, LM Wt 0.16 Bicarbonate Actual 26.9 ABG pCO2 69.7 H* ABG Base Excess -2.9 L Cord ABG pH 7.21 L* R OB LDICU PN:A/P - Problem List (1) Anemia affecting Current Visit: Yes Status: Acute Code(s): O99.019 - ANEMIA COMPLICATING , UNSPECIFIED TRIMESTER (2) Cervical insufficiency during , antepartum Current Visit: Yes Status: Acute Code(s): O34.30 - MATERNAL CARE FOR CERVICAL INCOMPETENCE, UNSP TRIMESTER (3) GBS carrier Current Visit: Yes Status: Acute Code(s): Z22.330 - CARRIER OF GROUP B STREPTOCOCCUS (4) PRE-ECLAMPSIA W SEVERE Current Visit: Yes Status: Acute (5) S/P primary low transverse Current Visit: Yes Status: Acute Code(s): Z98.891 - HISTORY OF UTERINE SCAR FROM PREVIOUS SURGERY (6) Morbid obesity Current Visit: Yes Status: Chronic Code(s): E66.01 - MORBID (SEVERE) OBESITY DUE TO EXCESS CALORIES (7) Hx of syphilis Current Visit: Yes Status: Resolved Code(s): Z86.19 - PERSONAL HISTORY OF OTHER INFECTIOUS AND PARASITIC DISEASES (8) Gestational HTN Current Visit: No Status: Acute Code(s): O13.9 - GESTATIONAL HTN W/O SIGNIFICANT PROTEINURIA, UNSP TRIMESTER Qualifiers: Trimester: second trimester Qualified Code(s): O13.2 - Gestational [ -induced] hypertension without significant proteinuria, second trimester (9) Pre-eclampsia Current Visit: No Status: Suspected Code(s): O14.90 - UNSPECIFIED PRE- ECLAMPSIA, UNSPECIFIED TRIMESTER Qualifiers: Trimester: third trimester Qualified Code(s): O14.93 - Unspecified pre- eclampsia, third trimester Disposition: Pre-Eclampsia with Severe Features: -Pt still on magnesium drip at this time. DTR 2+ in B/L UEs. No headache/cp/ vision changes/sob/abdominal pain. No signs of toxicity. -BP is WNL since last Mg check with SBP 130s-120s. Will continue labetolol 200 mg oral BID as well as Labetolol IV prn. -Will continue mag through 00:30 which will be 24hrs since its initiation. - Will continue to monitor BPs closely. Pt post day 1 s/p Primary LTCS: -Pt reported better control after anesthesia increased COMPOSITION SIDING WORKER dosing. Will continue this for post-op pain control for now and otherwise continue routine post- care. Discussion: Date/Time: 11/19/182200 This H&P was discussed with Dr. Subramanian and Dr. Moore who agree with the above documentation and plan.
[2018-11-19] MEDS: Labetalol 100 MG TAB PO SCH (22:21)
[2018-11-20] MEDS: Acetaminophen 1,000 MG in Premix Bag 1 BAG IVPB SCH ×2 (03:05→14:03)
--- NOTE | 2018-11-20 07:39 | PDOC.OBMPN ---
[facility] OB LDICU PN: Subj - Interval History Hospital Day: 3 Chief Complaint: chest pain/induction for gestational hypertension Indentification: 28 yo [id number] s/p PLTCS 2/2 failure to progress/dilate on @ 38.1wks Interval History: Denies headache. Pain controlled. Delvalle pulled. Passing flatus and urinated [facility] OB LDICU PN: Obj - Maternal Vital signs: BP: [144/75] HR: [68] RR: [16] Tmax: [] Pox: []% on [] Wt: [] - Urine output I&O: via toilet. not measured. [facility] OB LDICU PN: Exam - Physical Exam General: NAD, awake, alert and oriented HEENT: normocephalic and atraumatic, PERRLA Heart: RRR, normal S1/S2, no edema General: CTAB, no respiratory distress Abdomen: soft, other (wound vac in place covering incision) Neurological: no focal deficit Skin: no rash, good tugor [facility] OB LDICU PN: Data - Labs Lab results: Laboratory Results - last 24 hr 11/19/18 11/19/18 14:17 14:17 WBC 11.9 H RBC 3.24 L Hgb 9.2 L Hct 27.1 L MCV 83.4 MCH 28.4 MCHC 34.0 RDW 11.9 Plt Count 142 MPV 8.4 Heparin Anti-Xa, LM Wt 0.16 [facility] OB LDICU PN:A/P - Problem List (1) Current Visit: Yes Status: Acute Qualifiers: Weeks of gestation: 38 weeks Qualified Code(s): Z3A.38 - 38 weeks gestation of (2) S/P primary low transverse Current Visit: Yes Status: Acute Code(s): Z98.891 - HISTORY OF UTERINE SCAR FROM PREVIOUS SURGERY (3) PRE-ECLAMPSIA W SEVERE Current Visit: Yes Status: Acute (4) Gestational HTN Current Visit: No Status: Acute Code(s): O13.9 - GESTATIONAL HTN W/O SIGNIFICANT PROTEINURIA, UNSP TRIMESTER Qualifiers: Trimester: second trimester Qualified Code(s): O13.2 - Gestational [ -induced] hypertension without significant proteinuria, second trimester (5) Hx of syphilis Current Visit: Yes Status: Resolved Code(s): Z86.19 - PERSONAL HISTORY OF OTHER INFECTIOUS AND PARASITIC DISEASES (6) Cervical insufficiency during , antepartum Current Visit: Yes Status: Acute Code(s): O34.30 - MATERNAL CARE FOR CERVICAL INCOMPETENCE, UNSP TRIMESTER (7) Morbid obesity Current Visit: Yes Status: Chronic Code(s): E66.01 - MORBID (SEVERE) OBESITY DUE TO EXCESS CALORIES (8) Thrombocytopenia Current Visit: Yes Status: Acute Code(s): D69.6 - THROMBOCYTOPENIA, UNSPECIFIED (9) Anemia affecting Current Visit: Yes Status: Acute Code(s): O99.019 - ANEMIA COMPLICATING , UNSPECIFIED TRIMESTER (10) PPH ( hemorrhage) Current Visit: Yes Status: Acute Code(s): O72.1 - OTHER IMMEDIATE HEMORRHAGE (11) GBS carrier Current Visit: Yes Status: Acute Code(s): Z22.330 - CARRIER OF GROUP B STREPTOCOCCUS Disposition: stable Discussion: 28 yo [id number] s/p PLTCS @ 38.1wks 2/2 failure to progress, doing well, transferred from LDICU to . 1. sIUP s/p LTCS -2/2 gestational hypertension with severe range pressures vs preE with severe features -PLTCS 2/2 failure to progress/dilate -pt was started on magnesium for severe range pressures and headache complaint -now s/p 24 hours of magnesium post delivery, hx of severe range bp's yesterday am, however controlled in 130s-140s overnight -pt's pain controlled with automotive parts person pump, tylenol prn; ambulating to bathroom, urinated in toilet x2; passing flatus; will advance diet as tolerated and monitor bp's today 2. Preeclampsia with severe features vs Gestational HTN with severe range blood pressures -s/p 24 hours magnesium after delivery -Asymptomatic at present. Monitor BP closely. On oral labetalol. 3. 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 UDS negative at admission. 4. BMI 55 with excessive maternal weight gain (36 lbs): counceled on diet and exercise; no s/s of diabetes 5. Cervical incompetency: Treated with vaginal progesterone up to 37 wks. 6. hx of syphilis: Treated 2015. RPR titer stable at 1:2 since 2015. 7. nemia of : monitor H&H and started on iron PO BID. 8. Thrombocytopenia in : stable and greater than 100,000 9. DVT ppx: Started on lovenox 10. GBS carrier: No s/sx of infection 11. PPH: QBL for section > 1L. Asymptomatic. Postop labs with suspected drop in H&H. Start iron. Dispo: possible discharge tomorrow Addendum - Attending - Attending Attestation Date/Time: 11/20/18 1214 I personally evaluated the patient and discussed the management with Dr. Kennedy I agree with the History, Examination, Assessment and Plan documented above with any addition or exceptions noted below. 28 yo now female s/p LTCS at 38.1 wks on 11/20/18 at 00:37 for failure to progress POD#1 HD#3 Patient is doing well. No acute changes overnight. Was able to stop mag after 24 hours. Good diuresis. Denies CP, SOB, abdominal pain, vision changes. Has been able to ambulate in room. Positive flatus. Lochia mild. Pain is controlled on PRINCIPAL BIOINFORMATICS SPECIALIST pump. Wound vac in place. VS reviewed. BP mild range to severe since transfer to pp. Overall diuresis 4L in 24 hour period. NAD. RRR. no murmur CTA bilaterally Fundus NT but difficult to palpate due to habitus Wound vac in place and functioning FROM x 4 no edema 1. s/p LTCS: Continue routine pp/po care. Wound vac in place. 2. Incomplete/late care 3. Marijuana use in 1T only. UDS negative. 4. BMI 55 with excessive maternal weight gain (36 lbs): Lifestyle changes. Encourage breast feeding but patient prefers bottle. TSH = 2.55. A1c = 4.6%. Continue to discuss risk with future pregnancies. 5. Short cervix/cervical incompetency: Treated with vaginal progesterone up to 37 wks. No known history of risk factors. Will need to be monitored in future pregnancies. 6. hx of STI: Negative workup this 7. hx of syphilis: Treated 2015. RPR titer stable at 1:2 and 1:1. 8. advanced paternal age 9. Fetus with evidence of echogenic cardiac focus: Echo with atrial septum aneurysm -- follow up pedi cards 10. anemia of now with blood loss anemia: Asymptomatic. Continue iron supplement. 11. gThrombocytopenia: Stable. Lochia mild. Monitor for 2ndary PPH. 12. SGA fetus with poor interval growth 13. ASH, undiagnosed: monitor closely 14. DVT ppx: Continue lovenox, ambulation, and SCDs. 15. 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 Preeclampsia with severe features due to headache and severe range BP: s/p 24 hours mag sulfate ppx. Asymptomatic. Continue oral labetalol and adjust as needed. If BP remains severe range will need to increase dosing today. Diuresed 4L 24 hour pp. Will need ASA ppx. Risk for CV disease. 17. PPH: QBL for section > 1L. Asymptomatic. On iron. Dispo: Monitor throughout the day. Inpatient for 72 hours. Yumi
[2018-11-20] MEDS: Ferrous Sulfate 325 MG TAB PO SCH ×2 (10:15→18:26)
[2018-11-20] MEDS: Docusate Calcium (SURFAK) 240 MG CAP PO SCH ×3 (10:15→21:53)
[2018-11-20] MEDS ORDERED: Ketorolac Tromethamine 30 MG/ML VIAL IVP PRN (12:20)
[2018-11-20] MEDS ORDERED: HYDROcodone/Acetaminophen 5/325 mg Tablet PO PRN (12:21)
[2018-11-20] MEDS: HYDROcodone/Acetaminophen 5/325 mg Tablet PO PRN ×2 (13:59→20:13)
[2018-11-20] MEDS: Prenatal Vitamin 1 TAB PO SCH (14:03)
[2018-11-20] MEDS: Labetalol 100 MG TAB PO SCH ×2 (16:43→21:43)
[2018-11-20] MEDS: Enoxaparin Sodium 60 MG/0.6 ML SYRINGE SC SCH (16:44)
[2018-11-20] MEDS ORDERED: Acetaminophen 500 MG TAB PO PRN (18:00)
[2018-11-20] MEDS: Lactated Ringer's 1,000 ML IV SCH (22:29)
[2018-11-21] MEDS: Dextrose 5%-Lactated Ringers 1,000 ML IV SCH (07:57)
[2018-11-21] MEDS: Penicillin G 2.5 MILL.units 2.5 MILL.UNITS in Premix Bag 1 BAG IVPB SCH (07:57)
--- NOTE | 2018-11-21 08:04 | PDOC.PP ---
Post Progress Note Post Day #: 2 Subjective: Pt endorsed mild pain this morning. Off HIGHWAY MAINTAINER pump. Tolerating normal diet. Ambulating. Urinating and passing flatus. PO intake tolerated: yes Flatus: yes Ambulation: yes Vital Signs (12 hours) Temp Pulse Resp BP Pulse Ox 11/20/18 21:43 96 11/20/18 20:10 98.6 F 96 20 120/65 98 Weight Weight 145.15 kg - Physical Examination General: NAD Cardiovascular: RRR Deviation from normal: systolic murmur Respiratory: clear to auscultation bilaterally, non-labored breathing Abdominal: + bowel sounds, lochia (minimal) Deviation from normal: wound vac in place Neurological: no gross focal deficits Psychiatric: A&Ox3 Result Diagrams: 11/19/18 14:17 11/18/18 17:21 Additional Labs: Post Labs Blood Type A POSITIVE 11/17/18 15:26 Hep Bs Antigen Non-Reactive S/CO (NonReactive) 11/17/18 15:26 (1) Status: Acute Qualifiers: Weeks of gestation: 38 weeks Qualified Code(s): Z3A.38 - 38 weeks gestation of (2) S/P primary low transverse Code(s): Z98.891 - HISTORY OF UTERINE SCAR FROM PREVIOUS SURGERY Status: Acute (3) PRE-ECLAMPSIA W SEVERE Status: Acute (4) Gestational HTN Code(s): O13.9 - GESTATIONAL HTN W/O SIGNIFICANT PROTEINURIA, UNSP TRIMESTER Status: Acute Qualifiers: Trimester: second trimester Qualified Code(s): O13.2 - Gestational [ -induced] hypertension without significant proteinuria, second trimester (5) Hx of syphilis Code(s): Z86.19 - PERSONAL HISTORY OF OTHER INFECTIOUS AND PARASITIC DISEASES Status: Resolved (6) Cervical insufficiency during , antepartum Code(s): O34.30 - MATERNAL CARE FOR CERVICAL INCOMPETENCE, UNSP TRIMESTER Status: Acute (7) Morbid obesity Code(s): E66.01 - MORBID (SEVERE) OBESITY DUE TO EXCESS CALORIES Status: Chronic (8) Thrombocytopenia Code(s): D69.6 - THROMBOCYTOPENIA, UNSPECIFIED Status: Acute (9) Anemia affecting Code(s): O99.019 - ANEMIA COMPLICATING , UNSPECIFIED TRIMESTER Status : Acute (10) PPH ( hemorrhage) Code(s): O72.1 - OTHER IMMEDIATE HEMORRHAGE Status: Acute (11) GBS carrier Code(s): Z22.330 - CARRIER OF GROUP B STREPTOCOCCUS Status: Acute - Assessment/Plan 28 yo [id number] s/p PLTCS @ 38.1wks 2/2 failure to progress, doing well. 1. sIUP, delivered via PLTCS -PLTCS 2/2 failure to progress/dilate -pt was started on magnesium for severe range pressures and headache complaint -now s/p >24 hours of magnesium post delivery -pt's pain controlled with norco, tylenol prn; ambulating to bathroom, adequate UOP and passing flatus 2. Preeclampsia with severe features vs Gestational HTN with severe range blood pressures -s/p> 24 hours off magnesium after delivery -Asymptomatic at present. Monitor BP closely. On oral labetalol. 3. 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 UDS negative at admission. 4. BMI 55 with excessive maternal weight gain (36 lbs): counseled on diet and exercise; no s/s of diabetes 5. Cervical incompetency: Treated with vaginal progesterone up to 37 wks. 6. hx of syphilis: Treated 2015. RPR titer stable at 1:2 since 2016. 7. nemia of : monitor H&H and started on iron PO BID. 8. Thrombocytopenia in : stable and greater than 100,000 9. DVT ppx: Started on lovenox 10. GBS carrier: No s/sx of infection 11. PPH: QBL for section > 1L. Asymptomatic. Postop labs with suspected drop in H&H. Start iron. Dispo: possible discharge tomorrow Addendum - Attending - Attending Attestation Date/Time: 11/21/18 1040 I personally evaluated the patient and discussed the management with Dr. Kennedy I agree with the History, Examination, Assessment and Plan documented above with any addition or exceptions noted below. 28 yo now female s/p LTCS at 38.1 wks on 11/20/18 at 00:37 for failure to progress POD#2 HD#4 Patient is doing well. No acute changes overnight. Denies CP, SOB, abdominal pain, vision changes. Has been able to ambulate in room without complications. Did not ambulate in halls. Encouraged today. Positive flatus. Lochia mild. Pain is controlled on oral medications. Wound vac in place. VS reviewed. BP mild range to severe this AM. NAD. RRR. I/ systolic flow murmur CTA bilaterally Fundus NT but difficult to palpate due to habitus Wound vac in place and functioning FROM x 4 no edema 1. s/p LTCS: Continue routine pp/po care. Wound vac in place. Starting to meet milestones. Needs to ambulate in halls. 2. Incomplete/late care 3. Marijuana use in 1T only. UDS negative. 4. BMI 55 with excessive maternal weight gain (36 lbs): Lifestyle changes. Declined . TSH = 2.55. A1c = 4.6%. Continue to discuss risk with future pregnancies. 5. Short cervix/cervical incompetency: Treated with vaginal progesterone up to 37 wks. No known history of risk factors. Will need to be monitored in future pregnancies. 6. hx of STI: Negative workup this 7. hx of syphilis: Treated 2015. RPR titer stable at 1:2 and 1:1. 8. advanced paternal age 9. Fetus with evidence of echogenic cardiac focus: Echo with atrial septum aneurysm -- follow up pedi cards 10. anemia of now with blood loss anemia: Asymptomatic. Continue iron supplement. 11. gThrombocytopenia: Stable. Lochia mild. Monitor for 2ndary PPH. 12. SGA fetus with poor interval growth 13. ASH, undiagnosed: monitor closely 14. DVT ppx: Continue lovenox, ambulation, and SCDs. Due to poor ambulation will re-check antiXa level. 15. 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 Preeclampsia with severe features due to headache and severe range BP: s/p 24 hours mag sulfate ppx. Asymptomatic. Continue oral labetalol and adjust as needed. Diuresed 4L 24 hour pp. Will need ASA ppx. Risk for CV disease. 17. PPH: QBL for section > 1L. Asymptomatic. On iron. Dispo: Monitor throughout the day. Inpatient for 72 hours. Encourage ambulation. Yumi
[2018-11-21] MEDS: Ferrous Sulfate 325 MG TAB PO SCH ×2 (09:21→17:13)
[2018-11-21] MEDS: Docusate Calcium (SURFAK) 240 MG CAP PO SCH ×2 (09:21→21:36)
[2018-11-21] MEDS: Prenatal Vitamin 1 TAB PO SCH (09:22)
[2018-11-21] MEDS: Enoxaparin Sodium 60 MG/0.6 ML SYRINGE SC SCH (09:54)
[2018-11-21] MEDS: HYDROcodone/Acetaminophen 5/325 mg Tablet PO PRN ×2 (09:54→21:36)
[2018-11-21] MEDS: Labetalol 100 MG TAB PO SCH ×2 (09:54→21:37)
[2018-11-21] MEDS ORDERED: Enoxaparin Sodium 60 MG/0.6 ML SYRINGE SC SCH ×2 (14:38→15:30)
[2018-11-21] MEDS ORDERED: Enoxaparin Sodium 30 MG/0.3 ML SYRINGE SC SCH (14:45)
[2018-11-21] MEDS ORDERED: HYDROcodone/Acetaminophen 5/325 mg Tablet ONE (17:43)
--- NOTE | 2018-11-22 06:34 | PDOC.PP ---
Post Progress Note Subjective: Pt reports good rest overnight, + flatus, good PO toleration. Reports increased ambulation though she still is only ambulating around the room despite much encouragement to walk down the marin. She reports good pain control and that the pain has not stopped her from ambulating. no fever/chills, no sob no cp, no headache PO intake tolerated: yes Flatus: yes Ambulation: yes Vital Signs (12 hours) Temp Pulse Resp BP BP BP Pulse Ox 11/22/18 04:00 98.6 F 89 16 142/88 H 98 11/21/18 21:37 103 H 132/63 11/21/18 19:45 98.5 F 103 H 16 132/63 98 Weight Weight 145.15 kg - Physical Examination General: NAD Cardiovascular: no m/r/g, RRR Respiratory: clear to auscultation bilaterally, non-labored breathing Abdominal: + bowel sounds Skin: CS incision dry & intact, no rash Neurological: no gross focal deficits Psychiatric: A&Ox3, normal affect Result Diagrams: 11/19/18 14:17 11/18/18 17:21 Additional Labs: Post Labs Blood Type A POSITIVE 11/17/18 15:26 Hep Bs Antigen Non-Reactive S/CO (NonReactive) 11/17/18 15:26 (1) PRE-ECLAMPSIA W SEVERE Status: Acute (2) Sev preeclamp-del w/ complication Code(s): O14.15 - SEVERE PRE-ECLAMPSIA, COMPLICATING THE PUERPERIUM Status: Acute - Assessment/Plan 28 yo [id number] s/p PLTCS @ 38.1wks 2/2 failure to progress, doing well. 1. sIUP, delivered via PLTCS -PLTCS 2/2 failure to progress/dilate -pt was started on magnesium for severe range pressures and headache complaint -now s/p >48 hours of magnesium post delivery -pt's pain controlled with norco, tylenol prn; ambulating to bathroom, and passing flatus 2. Preeclampsia with severe features vs Gestational HTN with severe range blood pressures -s/p> 48 hours off magnesium after delivery -Asymptomatic at present. Monitor BP closely. On oral labetalol. 3. 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 UDS negative at admission. 4. BMI 55 with excessive maternal weight gain (36 lbs): counseled on diet and exercise; no s/s of diabetes 5. Cervical incompetency: Treated with vaginal progesterone up to 37 wks. 6. hx of syphilis: Treated 2015. RPR titer stable at 1:2 since 2015. 7. anemia of : monitor H&H and started on iron PO BID. 8. Thrombocytopenia in : stable and greater than 100,000 9. DVT ppx: increased lovenox dosing yesterday due to anti Xa lvl 10. GBS carrier: No s/sx of infection 11. PPH: QBL for section > 1L. Asymptomatic. Postop labs with suspected drop in H&H. Start iron. Dispo: likely DC today Addendum - Attending - Attending Attestation Date/Time: 11/22/18 [id number] I personally evaluated the patient and discussed the management with Dr. Cottrell I agree with the History, Examination, Assessment and Plan documented above with any addition or exceptions noted below. 28 yo now female s/p LTCS at 38.1 wks on 11/20/18 at 00:37 for failure to progress POD#3 HD#5 Patient remains well. BP mild range yesterday. Tolerating medication well. Lovenox dose now therapuetic for ppx dosing. Patient still not ambulating well. Wound vac in place. VS reviewed. BP mild range. NAD. RRR. I/ systolic flow murmur CTA bilaterally Fundus NT but difficult to palpate due to habitus Wound vac in place and functioning FROM x 4 no edema 1. s/p LTCS: Continue routine pp/po care. Wound vac in place. Meeting milestones. Encouraged more ambulation due to risk. 2. Incomplete/late care 3. Marijuana use in 1T only. UDS negative. 4. BMI 55 with excessive maternal weight gain (36 lbs): Lifestyle changes. Declined . TSH = 2.55. A1c = 4.6%. Continue to discuss risk with future pregnancies. 5. Short cervix/cervical incompetency: Treated with vaginal progesterone up to 37 wks. No known history of risk factors. Will need to be monitored in future pregnancies. 6. hx of STI: Negative workup this 7. hx of syphilis: Treated 2015. RPR titer stable at 1:2 and 1:1. 8. advanced paternal age 9. Fetus with evidence of echogenic cardiac focus: Echo with atrial septum aneurysm -- follow up pedi cards 10. anemia of now with blood loss anemia: Asymptomatic. Continue iron supplement. 11. gThrombocytopenia: Stable. Lochia mild. Monitor for 2ndary PPH. 12. SGA fetus with poor interval growth 13. ASH, undiagnosed: monitor closely 14. DVT ppx: Continue lovenox and ambulation. 15. 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 Preeclampsia with severe features due to headache and severe range BP: s/p 24 hours mag sulfate ppx. Asymptomatic. Continue oral labetalol and adjust as needed. Diuresed 4L 24 hour pp. Will need ASA ppx. Risk for CV disease. 17. PPH: QBL for section > 1L. Asymptomatic. On iron. 18. PP Blues: Multiple social risk factors present. Tearful on exam. Resources provided. Patient to follow up closely. Dispo: Encourage ambulation. Since not ambulating well will continue Lovenox pp until patient fairly functional. Follow up on Sunday at [facility] to remove wound vac. Increased Labetalol. Would recommend once established with PCP transitioning to better BP medication if HTN persist pp. Needs ASH evaluation. Will need ASA ppx with future . Need to continue to discuss contraception and risk associated with future pregnancies. Monitor for PPD. Yumi
[2018-11-22] MEDS: Labetalol 100 MG TAB PO SCH (08:52)
[2018-11-22] MEDS: Prenatal Vitamin 1 TAB PO SCH (08:52)
[2018-11-22] MEDS: Docusate Calcium (SURFAK) 240 MG CAP PO SCH (08:53)
[2018-11-22] MEDS: HYDROcodone/Acetaminophen 5/325 mg Tablet PO PRN ×2 (08:53→15:14)
[2018-11-22] MEDS ORDERED: Enoxaparin Sodium 80 MG/0.8 ML SYRINGE SC SCH (09:00)
[2018-11-22] MEDS: Ferrous Sulfate 325 MG TAB PO SCH (09:01)
[2018-11-22] MEDS ORDERED: Labetalol 100 MG TAB PO SCH ×2 (11:00→21:00)
[2018-11-22 16:25] VITALS: BP 133/78; TEMP 98.4
== END 2018-11-22 18:35 | disposition home or self-care (01) | DRG 787 ==
LOC: L&D/OP 12:00 → L&D 17:49 → UNDODISIN 11-19 19:48 → 3SE 11-20 07:43
PROVIDERS: ADMIT Obstetrics & Gynecology; ATTEND Student in an Organized Health Care Education/Training Program
PROC: 10D00Z1 Extraction of Products of Conception, Low, Open Approach (ICD-10-PCS; principal; 2018-11-19)
DX: O14.14 Severe pre-eclampsia complicating childbirth (principal); Z68.43 Body mass index [BMI] 50.0-59.9, adult; O99.12 Other diseases of the blood and blood-forming organs and certain disorders involving the immune mechanism complicating childbirth; O36.5930 Maternal care for other known or suspected poor fetal growth, third trimester, not applicable or unspecified; Z3A.38 38 weeks gestation of pregnancy; Z37.0 Single live birth; R07.89 Other chest pain; O40.3XX0 Polyhydramnios, third trimester, not applicable or unspecified; O99.214 Obesity complicating childbirth; E66.01 Morbid (severe) obesity due to excess calories; Z79.899 Other long term (current) drug therapy; O99.02 Anemia complicating childbirth; D64.9 Anemia, unspecified; O34.219 Maternal care for unspecified type scar from previous cesarean delivery; D69.6 Thrombocytopenia, unspecified; O75.89 Other specified complications of labor and delivery; O99.824 Streptococcus B carrier state complicating childbirth; O62.0 Primary inadequate contractions
CPT/HCPCS: 36415; 51702; 80053; 80306; 82570; 82805; 83880; 84156; 84550; 85025; 85027; 85520; 86593; 86780; 86850; 86900; 86901; 87340; 88307; 93005; 99285; C1726; J0131; J0360; J0456; J0595; J0690; J1100; J1650; J1885; J2175; J2250; J2274; J2405; J2540; J2590; J2704; J3010; J3475; J3490; J7050